=== PATIENT | male | born 1945 | race Caucasian/White ===

== ENCOUNTER 2023-11-14 07:49 | Inpatient (IN) ==
--- NOTE | 2023-11-03 13:35 | PAT Medication Instructions ---
Medication Instructions Date of Service November 03, 2023 Home Medications acyclovir 200 mg capsule 400 mg PO BID apixaban 5 mg tablet 2.5 mg PO BID calcium carbonate 500 mg PO BID cholecalciferol (vitamin D3) 50 mcg (2,000 unit) tablet (Vitamin D3) 50 mcg PO BID dexamethasone 4 mg tablet 4 mg PO DIRECTED famotidine 20 mg tablet (Pepcid) 20 mg PO DAILY PRN Acid Reflux hydrochlorothiazide 25 mg tablet 25 mg PO QAM lenalidomide 10 mg capsule (Revlimid) 10 mg PO DIRECTED lisinopril 20 mg tablet 20 mg PO QAM Continue as directed acyclovir 200 mg capsule 400 mg PO BID dexamethasone 4 mg tablet 4 mg PO DIRECTED ASK your prescriber and surgeon apixaban 5 mg tablet 2.5 mg PO BID lenalidomide 10 mg capsule (Revlimid) 10 mg PO DIRECTED DO NOT take the morning of surgery calcium carbonate 500 mg PO BID cholecalciferol (vitamin D3) 50 mcg (2,000 unit) tablet (Vitamin D3) 50 mcg PO BID hydrochlorothiazide 25 mg tablet 25 mg PO QAM lisinopril 20 mg tablet 20 mg PO QAM Take morning of surgery With a small sip of water, OTHERWISE NOTHING TO EAT OR DRINK AFTER MIDNIGHT: famotidine 20 mg tablet (Pepcid) 20 mg PO DAILY PRN Acid Reflux (if needed) Take evening before surgery calcium carbonate 500 mg PO BID cholecalciferol (vitamin D3) 50 mcg (2,000 unit) tablet (Vitamin D3) 50 mcg PO BID famotidine 20 mg tablet (Pepcid) 20 mg PO DAILY PRN Acid Reflux (if needed) Other Notes If you have any questions please call us at [phone] or [phone] or [phone] or [phone]
--- NOTE | 2023-11-08 08:57 | Anesthesiology Consultation ---
Date of Service November 08, 2023 Assessment & Plan (1) Encounter for pre-operative examination: - Infectious disease screening: Per assessment on 11/08/23: No known recent infectious disease contacts or current infectious disease symptoms. - Apixaban instructions per surgeon/prescriber - Positive antibodies: Received message from blood bank that patient's antibody screen is showing effects of previous Darzalex use (patient confirms he has not recently had this, blood bank indicates that the effects of use can remain in system for prolonged period). Jessica with blood bank states that patient will need to come in for another blood draw 11/11 (Monday) prior to 11/13 DOS for further send out labs ([place]) to ensure appropriate blood available perioperatively. Orders placed by blood bank (she states patient can come anytime on 11/11. desk sergeant aware). Spoke with patient via phone 11/08/23- he voiced understanding and indicates that he will come in 11/11 for blood-bank ordered labs. Chart Review Chart Review: Acceptable Risk for Surgery and Patient seen in Pre Admission Testing Teaching & Discussion Pre-Anesthesia Teaching/Discussion Notes: Instructed NPO after midnight before surgery,except medications with 15 cc of water. Medication instructions provided according to the PAT guidelines. History Surgery Operation Date: 11/14/23 07:45 Proposed Procedures p T12 Kyphoplasty - Anival Deshpande DO s T12 to L1 Decompression - Anival Deshpande DO Height/Weight Height: 5 ft 2.5 in Weight: 69.4 kg Allergies Allergy/AdvReac Type Severity Reaction Status Date / Time No Known Allergies Allergy Verified 11/03/23 12:42 Medications Home Medications Medication Instructions Recorded Confirmed Last Taken acyclovir 200 mg capsule 400 mg PO BID 11/03/23 11/03/23 Unknown apixaban 5 mg tablet 2.5 mg PO BID 11/03/23 11/03/23 Unknown calcium carbonate 500 mg PO BID 11/03/23 11/03/23 Unknown cholecalciferol (vitamin D3) 50 50 mcg PO BID 11/03/23 11/03/23 Unknown mcg (2,000 unit) tablet (Vitamin D3) dexamethasone 4 mg tablet 4 mg PO DIRECTED 11/03/23 11/03/23 Unknown famotidine 20 mg tablet (Pepcid) 20 mg PO DAILY PRN Acid Reflux 11/03/23 11/03/23 Unknown hydrochlorothiazide 25 mg tablet 25 mg PO QAM 11/03/23 11/03/23 Unknown lenalidomide 10 mg capsule 10 mg PO DIRECTED 11/03/23 11/03/23 Unknown (Revlimid) lisinopril 20 mg tablet 20 mg PO QAM 11/03/23 11/03/23 Unknown Past Medical History Medical History (Updated 11/08/23 @ 08:54 by Loreto Donnelly) Acid reflux Occasional History of COVID-19 01/2023 HTN (hypertension) Multiple myeloma Dx 07/2022 On anticoagulant therapy Pharmacy note indication: "VTE prophylaxis while on Revlimid" No personal hx of DVT/PE Osteoarthritis Poor historian Exercise / Class Metabolic Activity III < 4 Walking/Shop/Light housework Past Surgical History Surgical History (Updated 11/08/23 @ 09:47 by Loreto Donnelly) History of arthroscopy left knee History of hip surgery left History of surgery on lower extremity Left femur titanium danette History of tooth extraction Hx of hernia repair Past Anesthesia History No Hx of Anesthesia Complications and No Family Hx of Anesthesia Complications History of PONV No Hx of PONV and No Hx of Motion Sickness Social History Smoking Status: Former smoker Do You Dip or Chew Tobacco: No Smoking End Date: 10+ years ago Hx Alcohol Use: No Hx Substance Use: No substance use type: does not use Review of Systems Patient denies chest pain, shortness of breath, fever, chills, cough, wheezing, palpitations. Physical Exam Vital Signs BP 120/63 P 76 SP02 98%RA RESP 16 Physical Full cervical extension range of motion. Full TMJ range of motion. TMD 3 finger breaths Mallampati Score III Dentition: left upper "broken tooth" Lungs: clear throughout to auscultation Cardiac: regular rate and rhythm, no murmurs noted Spine: kyphosis Carotid arteries: negative bruit Extremities: no LE edema Lab Results Anesthesia Preop Results Results Anesthesia Widget: WBC 8.84 K/ul (4.8-10.8) 10/19/23 Hgb 12.4 g/dl (14.0-18.0) L 10/19/23 Hct 38.3 % (42.0-52.0) L 10/19/23 Plt 281 K/uL (130-400) 10/19/23 Na 141 mmol/L (136-145) 10/19/23 K 3.5 mmol/L (3.5-5.1) 10/19/23 Cl 102 mmol/L (98-107) 10/19/23 CO2 34 mmol/L (21-32) H 10/19/23 BUN 22 mg/dl (6-23) 10/19/23 Creat 1.10 mg/dl (0.6-1.4) 10/19/23 Glucose Level 110 mg/dl (70-99(Fasting)) H 10/19/23 PT 10.8 Seconds (9.0-12.0) 11/08/23 PTT 29 Seconds (21-31) 11/08/23 INR 1.0 (0.9-1.1) 11/08/23 HA1c 5.5 % (4.5-5.6) 11/08/23 Urine Color Yellow 11/08/23 Urine Appearance Clear (Clear) 11/08/23 Urine pH 6.5 (4.5-7.5) 11/08/23 Urine Specific [place] 1.010 (1.000-1.030) 11/08/23 Urine Protein Negative (Negative) 11/08/23 Urine Glucose (UA) Negative (Negative) 11/08/23 Urine Ketones Negative (Negative) 11/08/23 Urine Blood Negative (Negative) 11/08/23 Urine Nitrite Negative (Negative) 11/08/23 Urine Bilirubin Negative (Negative) 11/08/23 Urine Urobilinogen Negative (Negative) 11/08/23 Urine Leukocyte Esterase Negative (Negative) 11/08/23 Blood Type O Positive 11/08/23 Antibody Screen POSITIVE A 11/08/23 Testing Electrocardiogram Date: 11/08/23 SR with PACs at 75bpm. Prolonged QT. No significant change compared to 02/18/2009 per country printer apprentice comparison. Chest X-Ray Date: 11/08/23 FINDINGS: The lungs are clear. The heart is normal in size. There is a moderate hiatus hernia. No pleural effusions. No pneumothorax. A severe compression fracture at T12 is again noted. There is also a moderate compression fracture at T3. IMPRESSION: No acute cardiopulmonary process. T3 and T12 compression fractures.
[~2023-11-14 07:49] MED LIST: DEXAMETHASONE SOD INJ 4 MG/ML VIAL ONE; GLYCOPYRROLATE 0.2 MG/ML VIAL ONE; LIDOCAINE 2% 2 ML VIAL/AMP(20MG/ML) INFIL ONE; MIDAZOLAM HCL 1 MG/ML 2ML VIAL ONE; ONDANSETRON INJ 2 MG/ML 2 ML VIAL ONE; PROPOFOL IV EMULSION 10 MG/ML 20 ML VIAL IV ONE; ROCURONIUM BROMIDE 10 MG/ML 5 ML VIAL IV ONE; SUGAMMADEX SODIUM 200 MG/2 ML VIAL IV ONE; fentaNYL citrate PF 100 MCG/2 ML VIAL ONE
[2023-11-14] MEDS: ACETAMINOPHEN 500 MG TAB PO SCH (08:22)
[2023-11-14] MEDS: CeleBREX 200 MG CAP PO SCH (08:23)
[2023-11-14] MEDS: GABAPENTIN 300 MG CAP PO SCH ×2 (08:23→20:39)
[2023-11-14] MEDS: LR 60ML/HR IV SCH (08:23)
[2023-11-14] MEDS: LR 15ML/HR IV SCH (08:35)
[2023-11-14] MEDS ORDERED: ATROPINE SULFATE 0.1 MG/ML 10ML SYR IV PRN (09:03)
[2023-11-14] MEDS ORDERED: PROMETHAZINE HCL 6.25 MG in SODIUM CHLORIDE 0.9% 50 ML IV PRN (09:03)
--- NOTE | 2023-11-14 09:35 | History & Physical Bridge Note ---
Date of Service November 14, 2023 History & Physical Bridge Note I have examined the patient, reviewed the History & Physical and in the interval since the performance of the History & Physical I have noted the following changes of clinical significance: no changes noted
--- NOTE | 2023-11-14 09:36 | History & Physical Report ---
Date of Service November 14, 2023 Assessment & Plan (1) T12 compression fracture: Plan: T12 kyphoplasty, T12-L1 decompression History of Present Illness Chief Complaint: Chronic back pain Primary Care Provider: Nelson Bertrand Male who presents with chronic back pain consistent with a T12 compression fracture and stenosis. Subsequent is here for surgical invention. This is a 78-year-old Allergies Allergy/AdvReac Type Severity Reaction Status Date / Time No Known Allergies Allergy Verified 11/14/23 08:19 Home Medications Medication Instructions Recorded Confirmed Type acyclovir 200 mg capsule 400 mg PO BID 11/03/23 11/14/23 History apixaban 5 mg tablet 2.5 mg PO BID 11/03/23 11/14/23 History calcium carbonate 500 mg PO BID 11/03/23 11/14/23 History cholecalciferol (vitamin D3) 50 50 mcg PO BID 11/03/23 11/14/23 History mcg (2,000 unit) tablet (Vitamin D3) dexamethasone 4 mg tablet 4 mg PO DIRECTED 11/03/23 11/14/23 History famotidine 20 mg tablet (Pepcid) 20 mg PO DAILY PRN Acid Reflux 11/03/23 11/14/23 History hydrochlorothiazide 25 mg tablet 25 mg PO QAM 11/03/23 11/14/23 History lenalidomide 10 mg capsule 10 mg PO DIRECTED 11/03/23 11/14/23 History (Revlimid) lisinopril 20 mg tablet 20 mg PO QAM 11/03/23 11/14/23 History Past Med/Surg History Problem List (Updated 11/14/23 @ 09:36 by Anival Deshpande DO) T12 compression fracture Encounter for pre-operative examination Medical History (Updated 11/14/23 @ 09:36 by Anival Deshpande DO) Poor historian Acid reflux Occasional Osteoarthritis On anticoagulant therapy Pharmacy note indication: "VTE prophylaxis while on Revlimid" No personal hx of DVT/PE History of COVID-19 01/2023 HTN (hypertension) Multiple myeloma Dx 07/2022 Surgical History History of surgery on lower extremity Left femur titanium danette Hx of hernia repair History of arthroscopy left knee History of tooth extraction History of hip surgery left Social History Smoking Status: Former smoker Smoking End Date: 10+ years ago; Second Hand Exposure: No; Do You Dip or Chew Tobacco: No; Tobacco Cessation Education Requested by Patient: No Hx Alcohol Use: No Hx Substance Use: No Preferred Language: Nigerien Communication Ability: Effective Yarder Boss Required: No Beliefs That Will Affect Care: None Current Living Situation: Alone Other Information That Helps Us Care for You: No Feels Safe at Home: Yes Safety Concerns: Feels Safe At This Time Assistive Devices: Cane, Glasses and Hearing Aid - Bilateral Physical Exam Physical Exam: Patient is alert and oriented Heart regular rhythm lungs clear Results & Data Results & Data Vital Signs (Past 12 Hours) Vital Signs Pulse Resp BP Pulse Ox O2 Del Method 11/14/23 08:15 79 20 136/75 99 Room Air
[2023-11-14] MEDS: ceFAZolin 2000MG 2,000 MG/15 ML SYR IV SCH (09:59)
[2023-11-14] MEDS: BUPIVACAINE/EPINEPHRINE 0.25% 1:200,000 30 ML VIAL ONE ×2 (10:26→15:48)
[2023-11-14] MEDS: FLOSEAL HEMOSTATIC MATRIX 10ML TOP ONE (10:55)
[2023-11-14] MEDS: ceFAZolin 330 MG/ML 1 GM VIAL ONE ×2 (11:05→15:49)
--- NOTE | 2023-11-14 11:15 | Operative Report ---
Post Operative Report Pre & Post Diagnosis Operation Date: 11/14/23 09:35 Pre-Op diagnosis: T12 compression fracture with severe spinal stenosis Postop diagnosis: Same I identified the patient and participated in the time-out.: Yes Procedure Operation Date: 11/14/23 09:35 #1 decompression with bilateral medial facetectomies T12-L1. #2 in situ fusion T12-L1. #3 placement infuse collagen sponge bath Koros the posterior lateral gutters T12-L1. Surgeon Anival Deshpande, Stave Block Splitter Kim Benedict Estimated Blood Loss 50 Findings Consistent with Post-Op Diagnosis Specimens None Indications This is a 78-year-old male presents problems diagnosis after having course of nonoperative care is here for surgical invention. Description of Procedure Patient was met with identified informed consent obtained. Patient was then taken to the operative suite underwent patient placed in prone position on the Shaheed table on top of the Mahesh frame. All bony promises well-padded eyes inspected to ensure no external pressure placed upon them. This point the thoracolumbar spine was prepped and draped in a sterile fashion. Sharp disse ction with assisted Bovie cautery form down to and exposing the lamina transverse processes of T12 and L1. Informed complete laminectomy of L1 including bilateral medial facetectomies at with partial laminectomy T12 with bilateral medial facetectomies to adequately decompress the canal. I then attempted to place Kyphon working cannulas by way of a transpedicular approach into the T12 vertebral body. Despite several attempts it was unsuccessful to safely navigate what was left of the collapsed bone. Subsequently I aborted the kyphoplasty portion of the procedure. I then moved forward to place bone graft in the posterior gutters at T12-L1 using infuse collagen sponge and Koros. The transverse processes of T12 and L1 were burred to subcortical big bone prior to placement. 10 round MIRTHA drain was then inserted and incision closed with 1 Vicryl to fascia 2-0 Vicryl subcutaneously and 4 Monocryl for final skin closure. Please note Kim Benedict was present at the entire procedure on the patient positioning complex course of the surgery and possible closure. I attest to the content of the Intraoperative Record and any orders documented therein. Any exceptions are noted below.
[2023-11-14] MEDS: HYDROmorphone INJ 1 MG/ML SYRINGE IV PRN ×2 (11:30→19:33)
[2023-11-14] MEDS: IOPAMIDOL INJ 61% 15 ML VIAL INSTIL ONE (11:31)
--- NOTE | 2023-11-14 11:52 | Fluoroscopy Report ---
FL spine 1V any level CLINICAL HISTORY: KYPHO T12- ATTEMPTED TECHNIQUE: 1 views were obtained with the C-arm in the OR with the above procedure. Total fluoroscopy time was 17.5 seconds. Radiation dose was 5.93 mGy. Comparison: Comparison is made to MRI lumbar spine 10/17/2023 FINDINGS/IMPRESSION: Intraoperative images were obtained of attempted kyphoplasty and decompression a t T12. Please correlate with intraoperative fluoroscopy and operative report. ACT 112: Negative or not required by law. Electronically signed by: Monroe Wolf M.D. 11/14/2023 11:51 AM
[2023-11-14] MEDS: HYDROmorphone INJ 0.5 MG/0.5 ML SYR IV PRN (12:10)
--- NOTE | 2023-11-14 12:11 | History & Physical Bridge Note ---
Date of Service November 14, 2023 History & Physical Bridge Note I have examined the patient, reviewed the History & Physical and in the interval since the performance of the History & Physical I have noted the following changes of clinical significance: no changes noted Patient awoke with significant groin pain and testicular pain. His drain is seem to be functioning. I am concerned that he has developed neural compression from hematoma on recommending reexploration evacuation of hematoma of the thoracic spine this was possible.
[2023-11-14] MEDS: DEXAMETHASONE SOD INJ 4 MG/ML VIAL ONE (12:16)
[2023-11-14] MEDS: dexAMETHasone 10 MG in SYRINGE 0 ML IV STA (12:21)
[2023-11-14] MEDS ORDERED: PROPOFOL IV EMULSION 10 MG/ML 20 ML VIAL IV ONE (12:50)
[2023-11-14] MEDS ORDERED: LIDOCAINE 2% 2 ML VIAL/AMP(20MG/ML) INFIL ONE (12:50)
[2023-11-14] MEDS ORDERED: ROCURONIUM BROMIDE 10 MG/ML 5 ML VIAL IV ONE (12:50)
--- NOTE | 2023-11-14 12:50 | Anesthesiology Progress Note ---
Date of Service November 14, 2023 Anesthesia Post Procedure Vital Signs Vital Signs: Temp Pulse Pulse Resp BP Pulse Ox O2 Del Method 11/14/23 12:40 68 18 116/63 99 Nasal Cannula 11/14/23 12:30 71 22 137/71 100 Nasal Cannula 11/14/23 12:20 72 20 136/70 100 Nasal Cannula 11/14/23 12:10 73 18 140/91 100 Nasal Cannula 11/14/23 12:00 72 20 130/78 100 Nasal Cannula 11/14/23 11:50 79 15 127/79 100 Nasal Cannula 11/14/23 11:40 74 17 134/75 100 Nasal Cannula 11/14/23 11:30 70 12 147/73 H 100 Nasal Cannula 11/14/23 11:26 36.0 C L 75 10 L 151/72 H 98 Oxymask 11/14/23 08:15 79 20 136/75 99 Room Air O2 Flow Rate 11/14/23 12:40 2 11/14/23 12:30 2 11/14/23 12:20 2 11/14/23 12:10 2 11/14/23 12:00 2 11/14/23 11:50 2 11/14/23 11:40 2 11/14/23 11:30 2 11/14/23 11:26 6 11/14/23 08:15 Pain Intensity Groin: Pain Intensity: 10 Transfer of Care Handoff Completed per policy Notes Mental Status: alert / awake / arousable Patient Amnestic to Procedure: Yes Nausea / Vomiting: adequately controlled Pain: adequately controlled Airway Patency, RR, SpO2: stable & adequate BP & HR: stable & adequate Hydration State: stable & adequate Anesthetic Complications: no major complications apparent
[2023-11-14] MEDS ORDERED: fentaNYL citrate PF 100 MCG/2 ML VIAL ONE (12:51)
--- NOTE | 2023-11-14 13:20 | Communication Note ---
Date of Service: November 14, 2023 Patient returning to OR from PACU for evacuation hematoma. No further medical changes from preop, remains npo. Will plan to proceed under general anesthesia.
[2023-11-14] MEDS: ceFAZolin 2000MG 2,000 MG/15 ML SYR IV ONE (14:51)
[2023-11-14] MEDS ORDERED: ceFAZolin 330 MG/ML 1 GM VIAL ONE (15:03)
[2023-11-14] MEDS ORDERED: PHENYLEPHRINE 100MCG/ML 10ML SYR IV ONE (15:03)
--- NOTE | 2023-11-14 15:11 | Operative Report ---
Post Operative Report Pre & Post Diagnosis Operation Date: 11/14/23 09:40 Pre-Op diagnosis: Postop hematoma Postop diagnosis: Hematoma with evidence of bony fragments. I identified the patient and participated in the time-out.: Yes Procedure Operation Date: 11/14/23 09:40 Evacuation of hematoma and revision decompression T8 12 L1. Surgeon Anival Deshpande DO Bushing Press Operator Kim Benedict Estimated Blood Loss 15 Findings Consistent with Post-Op Diagnosis Specimens None Indications This is a 78-year-old male status post decompression fusion T12-L1 1. Postoperatively he had significant onset of perineal pain. Subsequently he was taken back to the OR to rule out neural compression. Description of Procedure Patient was taken the operative suite underwent patient placed prone position on the Shaheed table top Mahesh frame. All bony promises well-padded eyes inspected to ensure no external precipice spine. This point the the tho racolumbar spine was prepped and draped in a sterile fashion. Utilizing the previous incision site opened up the left spine to the epidural space. Hematoma was evacuated. I then explored the lateral recesses noting evidence of fragments of bone along the left lateral recess eroding into the dura and notable for CSF leak. All fragments were subsequently removed the CSF leak was far lateral and unable to be repaired directly. I did place a patch of DuraGen directly over the durotomy site followed by DuraSeal. 10 round MIRTHA drain was then inserted. Incision was closed with 1 Vicryl fascia 2-0 Vicryl subcutaneously and 4 Monocryl for fascial closure. Steri-Strips dressings placed. Patient waken taken to PACU stable condition. Please note Kim Benedict was present at the entire procedure and all the patient positioning complex portions of the surgery and final skin closure. I attest to the content of the Intraoperative Record and any orders documented therein. Any exceptions are noted below.
--- NOTE | 2023-11-14 16:42 | Anesthesiology Progress Note ---
Date of Service November 14, 2023 Anesthesia Post Procedure Vital Signs Vital Signs: Temp Pulse Pulse Resp BP Pulse Ox O2 Del Method 11/14/23 16:40 75 15 108/48 L 95 Nasal Cannula 11/14/23 16:30 36.4 C L 77 20 100/55 L 95 Nasal Cannula 11/14/23 16:20 75 14 99/53 L 96 Nasal Cannula 11/14/23 16:10 74 16 94/54 L 95 Nasal Cannula 11/14/23 16:00 71 16 104/51 L 94 Nasal Cannula 11/14/23 15:50 70 13 115/55 L 96 Nasal Cannula 11/14/23 15:40 69 12 110/61 98 Nasal Cannula 11/14/23 15:37 36.0 C L 74 10 L 119/60 98 Oxymask 11/14/23 14:10 80 12 115/58 L 94 Nasal Cannula 11/14/23 14:00 78 12 120/62 95 Nasal Cannula 11/14/23 13:50 77 14 126/64 95 Nasal Cannula 11/14/23 13:40 71 13 124/64 97 Nasal Cannula 11/14/23 13:30 71 18 119/61 97 Nasal Cannula 11/14/23 13:20 70 18 127/59 L 100 Nasal Cannula 11/14/23 13:10 71 15 123/64 100 Nasal Cannula 11/14/23 13:00 72 12 124/49 L 99 Nasal Cannula 11/14/23 12:50 70 17 107/53 L 99 Nasal Cannula 11/14/23 12:40 68 18 116/63 99 Nasal Cannula 11/14/23 12:30 71 22 137/71 100 Nasal Cannula 11/14/23 12:20 72 20 136/70 100 Nasal Cannula 11/14/23 12:10 73 18 140/91 100 Nasal Cannula 11/14/23 12:00 72 20 130/78 100 Nasal Cannula 11/14/23 11:50 79 15 127/79 100 Nasal Cannula 11/14/23 11:40 74 17 134/75 100 Nasal Cannula 11/14/23 11:30 70 12 147/73 H 100 Nasal Cannula 11/14/23 11:26 36.0 C L 75 10 L 151/72 H 98 Oxymask 11/14/23 08:15 79 20 136/75 99 Room Air O2 Flow Rate 11/14/23 16:40 2 11/14/23 16:30 2 11/14/23 16:20 2 11/14/23 16:10 2 11/14/23 16:00 2 11/14/23 15:50 2 11/14/23 15:40 2 11/14/23 15:37 6 11/14/23 14:10 2 11/14/23 14:00 2 11/14/23 13:50 2 11/14/23 13:40 2 11/14/23 13:30 2 11/14/23 13:20 2 11/14/23 13:10 2 11/14/23 13:00 2 11/14/23 12:50 2 11/14/23 12:40 2 11/14/23 12:30 2 11/14/23 12:20 2 11/14/23 12:10 2 11/14/23 12:00 2 11/14/23 11:50 2 11/14/23 11:40 2 11/14/23 11:30 2 11/14/23 11:26 6 11/14/23 08:15 Pain Intensity Groin: Pain Intensity: 10 Transfer of Care Handoff Completed per policy Notes Mental Status: alert / awake / arousable Patient Amnestic to Procedure: Yes Nausea / Vomiting: adequately controlled Pain: adequately controlled Airway Patency, RR, SpO2: stable & adequate BP & HR: stable & adequate Hydration State: stable & adequate Anesthetic Complications: no major complications apparent
[2023-11-14] MEDS ORDERED: METOCLOPRAMIDE HCL INJ 5 MG/ML 2 ML VIAL IV PRN (17:15)
[2023-11-14] MEDS ORDERED: SOD PHOSPHATE/SOD BIPHOSPHATE ENEMA 132 ML BTL PR PRN (17:15)
[2023-11-14] MEDS ORDERED: DO NOT ADMINISTER FLU VACCINE PRN (17:15)
[2023-11-14] MEDS ORDERED: NALOXONE HCL 0.4 MG/1 ML VIAL/CARP IV PRN (17:15)
[2023-11-14] MEDS ORDERED: LORazepam 0.5 MG in SYRINGE 0.25 ML IV PRN (17:15)
[2023-11-14] MEDS ORDERED: DO NOT ADMINISTER PNEUMOCOCCAL VACCINE PRN (17:15)
[2023-11-14] MEDS ORDERED: ALUMINUM/MAGNESIUM SUSP 30 ML UDC PO PRN (17:15)
[2023-11-14] MEDS ORDERED: ONDANSETRON 4 MG OD TAB PO PRN (17:15)
[2023-11-14] MEDS ORDERED: HYDROmorphone INJ 0.5 MG/0.5 ML SYR IV PRN (17:15)
[2023-11-14] MEDS ORDERED: PROMETHAZINE 12.5 MG/50.5 ML BAG IV PRN (17:15)
[2023-11-14] MEDS ORDERED: hydrOXYzine HCl 25 MG TAB PO PRN (17:15)
[2023-11-14] MEDS ORDERED: FAMOTIDINE 20 MG TAB PO PRN ×2 (17:15)
[2023-11-14] MEDS ORDERED: ONDANSETRON INJ 2 MG/ML 2 ML VIAL IV PRN (17:15)
[2023-11-14] MEDS ORDERED: diphenhydrAMINE Capsule 25 MG CAP PO PRN (17:15)
[2023-11-14] MEDS: SODIUM CHLORIDE 0.9% 1,000 ML IV SCH (17:48)
[2023-11-14] MEDS: oxyCODONE HCL IR 5 MG TAB (IMMEDIATE RELEASE) PO PRN (18:18)
[2023-11-14] MEDS: ceFAZolin 1000MG 1,000 MG/7.5 ML SYR IV SCH (18:19)
--- NOTE | 2023-11-14 19:12 | Consultation ---
Date of Consultation November 14, 2023 Assessment & Plan (1) T12 compression fracture: (2) Pathologic fracture: (3) Spinal stenosis, thoracolumbar region: (4) Multiple myeloma: (5) HTN (hypertension): Plan This is a 78-year-old male who has significant past medical history of multiple myeloma currently on Revlimid therapy [facility], HTN, GERD who presented for elective kyphoplasty and lumbar decompression surgery by Dr. Deshpande. T12 pathologic burst fracture in setting of multiple myeloma with severe central canal stenosis status post T12 kyphoplasty and T12-L1 decompression, POD #[address] Deshpande initial procedure complicated by perineal/groin pain resulting in return to OR and evacuation of hematoma and repair of CSF leak with dural patch reported EBL 50 mL preop hemoglobin 12.4, monitor hemoglobin closely pain/management orthopedics activity, therapy and incentive spirometry as directed by orthopedics patient currently on apixaban for VTE prophylaxis in setting of Revlimid therapy, will defer resumption of this medication at the discretion of orthopedic surgeon HTN: chronic, stable, hold lisinopril and HCTZ postoperatively, reevaluate blood pressure in a.m. and resume as able Multiple myeloma: Currently undergoing Revlimid therapy, 21-day cycle/7 days off, patient brought in his own supply; follows cancer care [facility], on apixaban for VTE prophylaxis DVT prophylaxis: SCDs Dispo: Per primary PCP: Nelson Bertrand at the [place] FULL CODE Thank you for this consultation. We will follow the patient with you during their hospital stay. You can reach a member of the [facility] Hospitalist Team 17/10 via hospitalist role on tiger text. A total of 50 minutes was spent coordinating, documenting, and providing care for this patient excluding time spent in the performance of separately billed services. This included personally viewing all current laboratories and imaging studies, medication reconciliation, outpatient chart review, and discussion with specialists. Pt was seen and examined in collaboration with Dr. Tripathi, please see addendum History of Present Illness Requesting Physician: Dr. Deshpande Reason for Consultation: Post op medical management Attending Physician: Anival Deshpande, DO History of Present Illness This is a 78-year-old male who has significant past medical history of multiple myeloma currently on Revlimid therapy following [facility], HTN, GERD who presented for elective kyphoplasty and lumbar decompression surgery by Dr. Deshpande. He currently is undergoing treatment for multiple myeloma and follows with Dr. Coelho of [facility]. He has been dealing with a significant amount of lower back pain with radiation to his hips. He underwent an MRI of his back which revealed a T12 burst fracture with 6 mm retropulsion likely pathologic in setting of history of multiple myeloma as well as severe central canal stenosis at the T12 level secondary To the retropulsion. He therefore was referred to Dr. Deshpande. He underwent the first procedure this morning and in PACU he developed significant groin pain. He was taken back to the OR to rule out neural compression. His exploratory procedure revealed hematoma in the epidural space as well as fragments of bone in the lateral recess and CSF leak. CSF leak was repaired with a dural seal patch. A 10 round MIRTHA drain was then inserted and he was taken back to PACU in stable condition. Postoperatively he continues to complain of numbness in his groin area but otherwise feels well. His son and [id number] are at bedside. He currently denies any fever, chills, sweats, lightheadedness, dizziness, chest pain, shortness of breath, nausea, vomiting or abdominal pain. He tolerated his clear liquid diet. Of note he is on a apixaban therapy and he last took this on Thursday 11/09. He is on this for VT prophylaxis while on Revlimid therapy. Allergies Allergy/AdvReac Type Severity Reaction Status Date / Time No Known Allergies Allergy Verified 11/14/23 08:19 Home Medications Medication Instructions Recorded Confirmed Type acyclovir 200 mg capsule 400 mg PO BID 11/03/23 11/14/23 History apixaban 5 mg tablet 2.5 mg PO BID 11/03/23 11/14/23 History calcium carbonate 500 mg PO BID 11/03/23 11/14/23 History cholecalciferol (vitamin D3) 50 50 mcg PO BID 11/03/23 11/14/23 History mcg (2,000 unit) tablet (Vitamin D3) dexamethasone 4 mg tablet 4 mg PO DIRECTED 11/03/23 11/14/23 History famotidine 20 mg tablet (Pepcid) 20 mg PO DAILY PRN Acid Reflux 11/03/23 11/14/23 History hydrochlorothiazide 25 mg tablet 25 mg PO QAM 11/03/23 11/14/23 History lenalidomide 10 mg capsule 10 mg PO DIRECTED 11/03/23 11/14/23 History (Revlimid) lisinopril 20 mg tablet 20 mg PO QAM 11/03/23 11/14/23 History Patient History Medical History Poor historian Acid reflux Occasional Osteoarthritis On anticoagulant therapy Pharmacy note indication: "VTE prophylaxis while on Revlimid" No personal hx of DVT/PE History of COVID-19 01/2023 HTN (hypertension) Multiple myeloma Dx 07/2022 Surgical History History of surgery on lower extremity Left femur titanium danette Hx of hernia repair History of arthroscopy left knee History of tooth extraction History of hip surgery left Social History Smoking Status: Former smoker Smoking End Date: 10+ years ago; Second Hand Exposure: No; Do You Dip or Chew Tobacco: No; Tobacco Cessation Education Requested by Patient: No Hx Alcohol Use: No Hx Substance Use: No Preferred Language: Kyrgyz Communication Ability: Effective Tea Room Manager Required: No Beliefs That Will Affect Care: None Current Living Situation: Alone Other Information That Helps Us Care for You: No Feels Safe at Home: Yes Safety Concerns: Feels Safe At This Time Assistive Devices: Cane, Glasses and Hearing Aid - Bilateral Review of Systems Review of Systems: All systems reviewed & are unremarkable except as noted in HPI & below Physical Exam Physical Exam: Constitutional: WD/WN, elderly, M, sitting up in bed, pale, vitals as above, NAD, sitting up in bed, pleasant, conversing easily Head: Normocephalic, Atraumatic Eyes: PERRL, conjunctivae normal, anicteric sclerae ENMT: external ear and nose normal, oropharynx normal Neck: trachea midline, no thyromegaly normal visual inspection Respiratory: normal respiratory effort, on O2 via 2L, lungs clear to auscultation, no wheeze, rales, rhonchi. Normal insp/exp effort, no accessory muscle use Cardiovascular: RRR, no murmur, no edema Vessels: no JVD or carotid bruit Chest: normal inspection of chest Abdomen: normal bowel sounds, soft, nontender, no hepatosplenomegaly Musculoskeletal: no cyanosis or clubbing, AROM x 4 Skin: no rashes, warm and dry normal turgor , lumbar dressing CDI with serosang drainage Neurologic: no face palsy, no dysarthria CN's II-XI intact bilaterally and moves all extremities Psychiatric: A+Ox3, euthymic affect Lymphatic: no cervical or axillary lymphadenopathy : somers cath with yellow urine Results & Data Vital Signs (Past 12 Hours) Vital Signs Temp Pulse Pulse Pulse Resp BP Pulse Ox 11/14/23 18:10 36.5 C 76 17 119/68 99 11/14/23 17:32 36.5 C 74 17 117/70 96 11/14/23 17:20 11/14/23 17:00 36.5 C 74 16 105/59 L 96 11/14/23 16:40 75 15 108/48 L 95 11/14/23 16:30 36.4 C L 77 20 100/55 L 95 11/14/23 16:20 75 14 99/53 L 96 11/14/23 16:10 74 16 94/54 L 95 11/14/23 16:00 71 16 104/51 L 94 11/14/23 15:50 70 13 115/55 L 96 11/14/23 15:40 69 12 110/61 98 11/14/23 15:37 36.0 C L 74 10 L 119/60 98 11/14/23 14:10 80 12 115/58 L 94 11/14/23 14:00 78 12 120/62 95 11/14/23 13:50 77 14 126/64 95 11/14/23 13:40 71 13 124/64 97 11/14/23 13:30 71 18 119/61 97 11/14/23 13:20 70 18 127/59 L 100 11/14/23 13:10 71 15 123/64 100 11/14/23 13:00 72 12 124/49 L 99 11/14/23 12:50 70 17 107/53 L 99 11/14/23 12:40 68 18 116/63 99 11/14/23 12:30 71 22 137/71 100 11/14/23 12:20 72 20 136/70 100 11/14/23 12:10 73 18 140/91 100 11/14/23 12:00 72 20 130/78 100 11/14/23 11:50 79 15 127/79 100 11/14/23 11:40 74 17 134/75 100 11/14/23 11:30 70 12 147/73 H 100 11/14/23 11:26 36.0 C L 75 10 L 151/72 H 98 11/14/23 08:15 79 20 136/75 99 O2 Del Method O2 Flow Rate 11/14/23 18:10 Nasal Cannula 11/14/23 17:32 Nasal Cannula 2 11/14/23 17:20 Nasal Cannula 2 11/14/23 17:00 Nasal Cannula 2 11/14/23 16:40 Nasal Cannula 2 11/14/23 16:30 Nasal Cannula 2 11/14/23 16:20 Nasal Cannula 2 11/14/23 16:10 Nasal Cannula 2 11/14/23 16:00 Nasal Cannula 2 11/14/23 15:50 Nasal Cannula 2 11/14/23 15:40 Nasal Cannula 2 11/14/23 15:37 Oxymask 6 11/14/23 14:10 Nasal Cannula 2 11/14/23 14:00 Nasal Cannula 2 11/14/23 13:50 Nasal Cannula 2 11/14/23 13:40 Nasal Cannula 2 11/14/23 13:30 Nasal Cannula 2 11/14/23 13:20 Nasal Cannula 2 11/14/23 13:10 Nasal Cannula 2 11/14/23 13:00 Nasal Cannula 2 11/14/23 12:50 Nasal Cannula 2 11/14/23 12:40 Nasal Cannula 2 11/14/23 12:30 Nasal Cannula 2 11/14/23 12:20 Nasal Cannula 2 11/14/23 12:10 Nasal Cannula 2 11/14/23 12:00 Nasal Cannula 2 11/14/23 11:50 Nasal Cannula 2 11/14/23 11:40 Nasal Cannula 2 11/14/23 11:30 Nasal Cannula 2 11/14/23 11:26 Oxymask 6 11/14/23 08:15 Room Air Laboratory Results preoperative lab work reviewed from 10/19/2023 including a CBC, BMP, A1c, lipid panel, urinalysis Diagnostic Findings Spine X-Ray 11/14/23 09:35 FL spine 1V any level CLINICAL HISTORY: KYPHO T12- ATTEMPTED TECHNIQUE: 1 views were obtained with the C-arm in the OR with the above procedure. Total fluoroscopy time was 17.5 seconds. Radiation dose was 5.93 mGy. Comparison: Comparison is made to MRI lumbar spine 10/17/2023 FINDINGS/IMPRESSION: Intraoperative images were obtained of attempted kyphoplasty and decompression at T12. Please correlate with intraoperative fluoroscopy and operative report. ACT 112: Negative or not required by law. Electronically signed by: Monroe Wolf M.D. 11/14/2023 11:51 AM preoperative chest x-ray reviewed from 10/17/2023 which negative for any acute cardiopulmonary abnormality. Medications Administered Current Inpatient Medications Acetaminophen (Acetaminophen 500 Mg Tab) 1,000 mg PO Q8H PRN PRN Reason: MILD Pain Scale 1,2,3 & Pre PT Stop: 12/14/23 17:14 Al Hydrox/Mg Hydrox/Simethicone (Aluminum/Magnesium Susp 30 Ml Udc) 30 ml PO Q6H PRN PRN Reason: Dyspepsia Stop: 12/14/23 17:14 Bisacodyl (Bisacodyl 10 Mg Supp) 10 mg FL DAILY PRN PRN Reason: Constipation Stop: 12/14/23 17:14 Calcium Carbonate (Calcium Carbonate 1250mg Tab) 1 tab PO BID BR[facility]ON Stop: 12/14/23 20:59 Dexamethasone (Dexamethasone 4 Mg Tab) 20 mg PO Th@0900 [facility]; Protocol Stop: 12/16/23 08:59 Diphenhydramine HCl (Diphenhydramine Capsule 25 Mg Cap) 25 mg PO Q6H PRN PRN Reason: Allergic Rhinitis/Insomnia Stop: 12/14/23 17:14 Famotidine (Famotidine 20 Mg Tab) 20 mg PO Q12H PRN PRN Reason: Dyspepsia Stop: 12/14/23 17:14 Gabapentin (Gabapentin 300 Mg Cap) 300 mg PO TID [facility] Stop: 12/14/23 20:59 Hydrochlorothiazide (Hydrochlorothiazide 25 Mg Tab) 25 mg PO QAM [facility] Stop: 12/15/23 08:59 Hydromorphone HCl (Hydromorphone Inj 0.5 Mg/0.5 Ml Syr) 0.25 mg IV Q5M PRN PRN Reason: Pain Stop: 11/28/23 12:14 Last Admin: 11/14/23 12:41 Dose: 0.25 mg Hydromorphone HCl (Hydromorphone Inj 0.5 Mg/0.5 Ml Syr) 0.5 mg IV Q3H PRN PRN Reason: MODERATE Pain (Scale 4,5,6) & Pre PT Stop: 11/28/23 17:14 Hydromorphone HCl (Hydromorphone Inj 1 Mg/Ml Syringe) 1 mg IV Q3H PRN PRN Reason: SEVERE Pain (Scale 7,8,9,10) Stop: 11/28/23 17:14 Hydroxyzine HCl (Hydroxyzine Hcl 25 Mg Tab) 25 mg PO Q8H PRN PRN Reason: Anxiety Stop: 12/14/23 17:14 Lactated Ringer's (Lr) 1,000 mls @ 15 mls/hr IV .Q24H [facility] Stop: 11/15/23 05:59 Last Infusion: 11/14/23 09:58 Dose: Infused Lactated Ringer's (Lr) 1,000 mls @ 60 mls/hr IV .[id number] [facility]ON Stop: 11/14/23 22:39 Last Admin: 11/14/23 08:23 Dose: Not Given Sodium Chloride (Nss) 1,000 mls @ 100 mls/hr IV .Q10H [facility] Stop: 12/14/23 17:14 Last Admin: 11/14/23 17:48 Dose: 100 mls/hr Acetaminophen (Ofirmev) 1,000 mg in 100 mls @ 400 mls/hr IV Q8H PRN PRN Reason: Pain Rating 1-3 & Pre PT Stop: 11/15/23 17:15 Cefazolin Sodium (Ancef 1000mg) 1,000 mg in 7.5 mls @ 2.5 mls/min IV Q8H [facility]; Protocol Stop: 11/15/23 01:32 Last Admin: 11/14/23 18:19 Dose: 2.5 mls/min Lorazepam 0.5 mg/ Syringe 0.5 mls @ 2 mls/min IV Q8H PRN; Protocol PRN Reason: Sedation/Anxiety Stop: 12/14/23 17:14 Promethazine HCl (Phenergan) 12.5 mg in 50.5 mls @ 202 mls/hr IV Q6H PRN PRN Reason: Nausea And Vomiting Stop: 12/14/23 17:14 Influenza Virus Vaccine Quadrival (Do Not Administer Flu Vaccine) 1 each N/A PRN PRN PRN Reason: Notification Stop: 12/14/23 17:14 Lisinopril (Lisinopril 20 Mg Tab) 20 mg PO QAM [facility] Stop: 12/15/23 08:59 Lorazepam (Lorazepam 0.5 Mg Tab) 0.5 mg PO Q8H PRN PRN Reason: Sedation/Anxiety Stop: 12/14/23 17:14 Magnesium Hydroxide (Magnesium Hydroxide Susp 30 Ml Udc) 30 ml PO Q24H PRN PRN Reason: Constipation Stop: 12/14/23 17:14 Metoclopramide HCl (Metoclopramide Hcl Inj 5 Mg/Ml 2 Ml Vial) 10 mg IV Q6H PRN PRN Reason: Nausea &/or Vomiting Stop: 12/14/23 17:14 Miscellaneous (Lenalidomide Do Not Tube) 1 each N/A QS [facility] Stop: 12/15/23 00:00 Naloxone HCl (Naloxone Hcl 0.4 Mg/1 Ml Vial/Carp) 0.1 mg IV Q5M PRN PRN Reason: Oversedation/Resp depression Stop: 12/14/23 17:14 Ondansetron HCl (Ondansetron Inj 2 Mg/Ml 2 Ml Vial) 4 mg IV Q6H PRN PRN Reason: Nausea &/or Vomiting Stop: 12/14/23 17:14 Ondansetron HCl (Ondansetron 4 Mg Od Tab) 4 mg PO Q6H PRN PRN Reason: Nausea Stop: 12/14/23 17:14 Oxycodone HCl (Oxycodone Hcl Ir 5 Mg Tab (Immediate Release)) 5 - 10 mg PO Q4H PRN PRN Reason: Pain & Pre PT Stop: 11/28/23 17:14 Last Admin: 11/14/23 18:18 Dose: 10 mg Pneumococcal Polyvalent Vaccine (Do Not Administer Pneumococcal Vaccine) 1 each N/A PRN PRN PRN Reason: Notification Stop: 12/14/23 17:14 Polyethylene Glycol (Polyethylene (Miralax) 17 Gm Pack) 17 gm PO Q6 [facility] Stop: 12/15/23 05:59 Senna/Docusate Sodium (Docusate Sodium/Senna 50/8.6mg Tab) 2 tab PO HS [facility] Stop: 12/14/23 20:59 Sodium Biphosphate/Sodium Phosphate (Sod Phosphate/Sod Biphosphate Enema 132 Ml Btl) 132 ml FL ONE PRN PRN Reason: Constipation Stop: 12/14/23 17:14 Tramadol HCl (Tramadol Hcl 50 Mg Tablet) 50 - 100 mg PO Q4H PRN PRN Reason: Moderate-Severe pain & Pre PT Stop: 12/14/23 17:14 Vitamin D (Cholecalciferol 25 Mcg (1000 Units) Tab) 50 mcg PO BID [facility] Stop: 12/14/23 20:59 ECG Additional Comments: I have independently reviewed and interpreted patient's admitting EKG which revealed: Sinus rhythm with PAC, QTc 482 MS, ventricular rate 75 bpm
[2023-11-14] MEDS: CALCIUM CARBONATE 1250MG TAB PO SCH (20:39)
[2023-11-14] MEDS: DOCUSATE SODIUM/SENNA 50/8.6MG TAB PO SCH (20:39)
[2023-11-14] MEDS: ACYCLOVIR 200 MG CAP PO SCH (20:39)
[2023-11-14] MEDS: LORazepam 0.5 MG TAB PO PRN (20:39)
[2023-11-14] MEDS: CHOLECALCIFEROL 25 MCG (1000 UNITS) TAB PO SCH (20:39)
[2023-11-14] MEDS: LENALIDOMIDE PO SCH (20:40)
[2023-11-14] MEDS: traMADol HCL 50 MG TABLET PO PRN (21:06)
[2023-11-14] MEDS: HYDROmorphone INJ 0.5 MG/0.5 ML SYR IV STA (21:54)
[2023-11-14] MEDS: ACETAMINOPHEN 1,000 MG/100 ML VIAL IV PRN (23:30)
[2023-11-15] MEDS ORDERED: [UNRECOGNIZED DRUG - REMARK] SCH
[2023-11-15] MEDS: POLYETHYLENE (MIRALAX) 17 GM PACK PO SCH (05:31)
[2023-11-15 05:49] LABS: Basophils # (auto) 0.02 K/uL (0.00-0.20); Basophils % (auto) 0.1 %; Hematocrit (blood only) 32.3 % (42.0-52.0); Hemoglobin 10.4 g/dl (14.0-18.0); Immature Granulocytes # (auto) 0.08 K/uL (0.01-0.20); Immature Granulocytes % (auto) 0.6 %; Lymphocytes # (auto) 1.13 K/uL (1.20-3.40); Mean Corpuscular Hemoglobin 29.9 pg (25.0-34.0); Mean Corpuscular Hgb Conc 32.2 g/dL (32.0-36.0); Mean Corpuscular Volume 92.8 fL (80.0-100.0); Mean Platelet Volume 13.5 fL (9.4-12.4); Monocytes # (auto) 1.06 K/uL (0.11-0.59); Monocytes % (auto) 7.5 %; Neutrophils # (auto) 11.84 K/uL (1.40-6.50); Neutrophils % (auto) 83.8 %; Platelet Count 185 K/uL (130-400); RDW Coefficient of Variation 15.5 % (11.5-14.5); Red Blood Count 3.48 M/uL (4.70-6.10); White Blood Count 14.13 K/ul (4.8-10.8)
[2023-11-15] MEDS ORDERED: lisinopril 20 MG TAB PO SCH (09:00)
[2023-11-15] MEDS ORDERED: hydroCHLOROthiazide 25 MG TAB PO SCH (09:00)
--- NOTE | 2023-11-15 09:17 | Orthopedic Progress Note ---
Date of Service November 15, 2023 Assessment & Plan (1) T12 compression fracture: Plan: Bed rest today, possible PT tommorow Admission and Anticipated Discharge Date Admission Date: November 14, 2023 Subjective some grion pain, feet improved. No QUINONES or nausea Physical Exam Physical Exam: good strength in legs, sensory intact Results & Data Vital Signs (Past 12 Hours) Vital Signs Temp Pulse Resp BP Pulse Ox O2 Del Method O2 Flow Rate 11/15/23 07:20 Nasal Cannula 2 11/15/23 07:04 36.4 C L 79 18 109/62 98 Nasal Cannula 2 11/15/23 03:33 36.5 C 71 18 102/61 94 Nasal Cannula 2 11/15/23 02:19 36.4 C L 74 18 106/59 L 99 Nasal Cannula 2 11/15/23 00:57 36.4 C L 76 18 93/55 L 98 Nasal Cannula 2 11/14/23 23:54 92/55 L 11/14/23 23:20 36.6 C 80 18 94/55 L 98 Nasal Cannula 2
--- NOTE | 2023-11-15 13:17 | Hospitalist Progress Note ---
Date of Service November 15, 2023 Assessment & Plan (1) T12 compression fracture: (2) Pathologic fracture: (3) Spinal stenosis, thoracolumbar region: (4) Multiple myeloma: (5) HTN (hypertension): Plan This is a 78-year-old male who has significant past medical history of multiple myeloma currently on Revlimid therapy following [facility], HTN, GERD who presented for elective kyphoplasty and lumbar decompression surgery by Dr. Deshpande. T 12 pathologic burst fracture in setting of multiple myeloma with severe central canal stenosis S/P status post T12 kyphoplasty and T12-L1 decompression on 11/14/23 by Evacuation of hematoma and revision decompression T8 [address] Deshpande on 11/14/2023 Postoperative acute blood loss anemia--expected Activity as per primary team Continue wound care Pain control, DVT prophylaxis per orthopedics Continue bowel regimen to prevent constipation No indication for blood transfusion currently Leukocytosis likely secondary to steroids Hypertension Blood pressure low Hold lisinopril, HCTZ for now Monitor BP closely Multiple myeloma: Currently undergoing Revlimid therapy, 21-day cycle/7 days off, patient brought in his own supply Follows [facility], on apixaban for VTE prophylaxis DVT Px: Resume Eliquis as able once cleared by orthopedics SCDs fr now CODE STATUS FULL CODE Thank you for this consultation. We will follow the patient with you during their hospital stay. You can reach a member of the [facility] Hospitalist Team 17/10 via hospitalist role on tiger text. Admission and Anticipated Discharge Date Admission Date: November 14, 2023 Subjective Patient is seen and examined at bedside Back pain at surgical site is controlled Reports having constipation Denies any nausea, vomiting, abdominal pain, chest pain, dyspnea Family at bedside Also reports having some groin discomfort Review of Systems Review of Systems: All systems reviewed & are unremarkable except as noted in Subjective Physical Exam Physical Exam: Physical Exam: Vitals signs as noted above General Appearance:Moderately built and nourished, no apparent distress Head: normocephalic, Atraumatic Eyes: normal inspection, EOMI Neck: supple, Trachea midline Respiratory/Chest: Normal breath sounds, CTA, No accessory muscle use Cardiovascular: S1, S2, No murmur Abdomen/GI:Soft, Non tender, Bowel sounds present Back: Surgical site in dressing,+ drain Extremities/Musculoskeletal:normal inspection, no edema Neurologic/Psych:AAOX3, grossly no focal neurological deficits Skin: normal color, warm Results & Data Results & Data Vital Signs (Past 12 Hours) Vital Signs Temp Pulse Resp BP Pulse Ox O2 Del Method O2 Flow Rate 11/15/23 07:20 Nasal Cannula 2 11/15/23 07:04 36.4 C L 79 18 109/62 98 Nasal Cannula 2 11/15/23 03:33 36.5 C 71 18 102/61 94 Nasal Cannula 2 11/15/23 02:19 36.4 C L 74 18 106/59 L 99 Nasal Cannula 2 Laboratory Results Short CBC 11/15/23 Range/Units 05:27 WBC 14.13 H (4.8-10.8) K/ul Hgb 10.4 L (14.0-18.0) g/dl Hct 32.3 L (42.0-52.0) % Plt Count 185 (130-400) K/uL
[2023-11-16 06:12] LABS: Hematocrit (blood only) 28.3 % (42.0-52.0); Mean Corpuscular Hemoglobin 30.2 pg (25.0-34.0); Mean Corpuscular Hgb Conc 31.8 g/dL (32.0-36.0); Mean Platelet Volume 13.2 fL (9.4-12.4); Platelet Count 181 K/uL (130-400); RDW Coefficient of Variation 15.9 % (11.5-14.5); Red Blood Count 2.98 M/uL (4.70-6.10); White Blood Count 13.67 K/ul (4.8-10.8)
[2023-11-16 06:25] LABS: BUN Creatinine Ratio 48.9 (10-20); Calcium 7.8 mg/dl (8.6-10.3); Creatinine Clr Calc Pharmacy 54.7 ml/min; Est GFR (Non-African American) 76.8 ml/min; Magnesium 1.6 mg/dl (1.7-2.4); Potassium 3.5 mmol/L (3.5-5.1)
--- NOTE | 2023-11-16 08:49 | Orthopedic Progress Note ---
Date of Service November 16, 2023 Assessment & Plan (1) Spinal stenosis, thoracolumbar region: Plan: At this time we will discontinue his drain this morning. Once this is done we can begin transfers from bed to chair and bathroom privileges. If he tolerates activity today we will initiate formalized physical therapy tomorrow. Admission and Anticipated Discharge Date Admission Date: November 14, 2023 Subjective Is tolerating standard bed without difficulty. No nausea vomiting or headaches. Patient's back pain is controlled. Physical Exam Physical Exam: On exam I was able to have him sit up without difficulty. He is good strength testing. MIRTHA drain decreasing appropriately. Results & Data Vital Signs (Past 12 Hours) Vital Signs Temp Pulse Resp BP BP Pulse Ox O2 Del Method 11/16/23 08:40 80/48 L 11/16/23 08:35 85 86/49 L 11/16/23 08:30 71 73/43 L 11/16/23 07:49 94 H 94 Room Air 11/16/23 07:41 36.9 C 16 96/58 L 94 Room Air 11/15/23 20:55 36.8 C 86 16 121/73 95 Room Air
[2023-11-16] MEDS: dexAMETHasone 4 MG TAB PO SCH (08:50)
[2023-11-16] MEDS: SODIUM CHLORIDE 0.9% 500 ML IV ONE (09:03)
[2023-11-16] MEDS: MAGNESIUM CHLORIDE W/CALCIUM 64MG DELAYED REL TAB PO SCH (10:20)
[2023-11-16] MEDS: SODIUM CHLOR 0.45% + 20MEQ KCL 20 MEQ/1,000 ML BAG IV SCH (10:21)
--- NOTE | 2023-11-16 17:03 | Hospitalist Progress Note ---
Date of Service November 16, 2023 Assessment & Plan (1) T12 compression fracture: (2) Pathologic fracture: (3) Spinal stenosis, thoracolumbar region: (4) Multiple myeloma: (5) HTN (hypertension): Plan This is a 78-year-old male who has significant past medical history of multiple myeloma currently on Revlimid therapy following [facility], HTN, GERD who presented for elective kyphoplasty and lumbar decompression surgery by Dr. Deshpande. T 12 pathologic burst fracture in setting of multiple myeloma with severe central canal stenosis S/P status post T12 kyphoplasty and T12-L1 decompression on 11/14/23 by Evacuation of hematoma and revision decompression T8 [address] Deshpande on 11/14/2023 Postoperative acute blood loss anemia--expected Activity as per primary team Continue wound care Pain control, DVT prophylaxis per orthopedics Continue bowel regimen to prevent constipation No indication for blood transfusion currently Leukocytosis likely secondary to steroids Monitor CBC closely Continue PT OT Hypertension Currently hypotensive Hold lisinopril, HCTZ for now Monitor BP closely IV fluids as needed Hypomagnesemia Replete electrolytes as needed Monitor Multiple myeloma: Currently undergoing Revlimid therapy, 21-day cycle/7 days off, patient brought in his own supply Follows [facility], on apixaban for VTE prophylaxis DVT Px: Resume Eliquis as able once cleared by orthopedics SCDs fr now CODE STATUS FULL CODE Thank you for this consultation. We will follow the patient with you during their hospital stay. You can reach a member of the [facility] Hospitalist Team 17/10 via hospitalist role on tiger text. Admission and Anticipated Discharge Date Admission Date: November 14, 2023 Subjective Patient is seen and examined at bedside Noted to be dizzy especially with PT this morning Back pain much improved Still reports constipation Denies any nausea, vomiting, abdominal pain, chest pain, dyspnea Review of Systems Review of Systems: All systems reviewed & are unremarkable except as noted in Subjective Physical Exam Physical Exam: Physical Exam: Vitals signs as noted above General Appearance:Moderately built and nourished, no apparent distress Head: normocephalic, Atraumatic Eyes: normal inspection, EOMI Neck: supple, Trachea midline Respiratory/Chest: Normal breath sounds, CTA, No accessory muscle use Cardiovascular: S1, S2, No murmur Abdomen/GI:Soft, Non tender, Bowel sounds present Back: Surgical site in dressing,+ drain Extremities/Musculoskeletal:normal inspection, no edema Neurologic/Psych:AAOX3, grossly no focal neurological deficits Skin: normal color, warm Results & Data Results & Data Vital Signs (Past 12 Hours) Vital Signs Temp Pulse Resp BP BP Pulse Ox O2 Del Method 11/16/23 13:38 36.9 C 102 H 18 92/52 L 94 Room Air 11/16/23 13:14 103 H 98/58 L 95 Room Air 11/16/23 10:12 92/68 L 11/16/23 08:40 80/48 L 11/16/23 08:35 85 86/49 L 11/16/23 08:30 Room Air 11/16/23 08:30 71 73/43 L 11/16/23 07:49 94 H 94 Room Air 11/16/23 07:41 36.9 C 16 96/58 L 94 Room Air Laboratory Results Short CBC 11/16/23 Range/Units 05:27 WBC 13.67 H (4.8-10.8) K/ul Hgb 9.0 L (14.0-18.0) g/dl Hct 28.3 L (42.0-52.0) % Plt Count 181 (130-400) K/uL BMP 11/16/23 05:27 Sodium 138 Potassium 3.5 Chloride 101 Carbon Dioxide 34 H BUN 46 H Creatinine 0.94 Glucose 112 H Calcium 7.8 L
[2023-11-17 06:07] LABS: Hematocrit (blood only) 21.7 % (42.0-52.0); Mean Corpuscular Hemoglobin 30.2 pg (25.0-34.0); Mean Corpuscular Hgb Conc 32.3 g/dL (32.0-36.0); Mean Corpuscular Volume 93.5 fL (80.0-100.0); Mean Platelet Volume 13.4 fL (9.4-12.4); Platelet Count 183 K/uL (130-400); RDW Coefficient of Variation 16.1 % (11.5-14.5); RDW Standard Deviation 54.9 fL (36.4-46.3); Red Blood Count 2.32 M/uL (4.70-6.10); White Blood Count 21.29 K/ul (4.8-10.8)
[2023-11-17 06:54] LABS: BUN Creatinine Ratio 83.9 (10-20); Calcium 7.7 mg/dl (8.6-10.3); Creatinine Clr Calc Pharmacy 59.1 ml/min; Est GFR (African American) 95.1 ml/min; Est GFR (Non-African American) 82.1 ml/min; Magnesium 1.7 mg/dl (1.7-2.4); Potassium 4.2 mmol/L (3.5-5.1)
--- NOTE | 2023-11-17 08:03 | Hospitalist Progress Note ---
Date of Service November 17, 2023 Assessment & Plan (1) T12 compression fracture: (2) Pathologic fracture: (3) Spinal stenosis, thoracolumbar region: (4) Multiple myeloma: (5) HTN (hypertension): Plan This is a 78-year-old male who has significant past medical history of multiple myeloma currently on Revlimid therapy following [facility], HTN, GERD who presented for elective kyphoplasty and lumbar decompression surgery by Dr. Deshpande. T 12 pathologic burst fracture in setting of multiple myeloma with severe central canal stenosis S/P status post T12 kyphoplasty and T12-L1 decompression on 11/14/23 by Evacuation of hematoma and revision decompression T8 [address] Deshpande on 11/14/2023 Postoperative acute blood loss anemia Activity as per primary team Continue wound care Pain control, DVT prophylaxis per orthopedics Continue bowel regimen to prevent constipation No indication for blood transfusion currently Leukocytosis likely secondary to steroids Monitor CBC closely Continue PT OT Hb dropped to 7.0 today Will transfuse 1 unit PRBC today Monitor H&H Hypertension Currently hypotensive Hold lisinopril, HCTZ for now Monitor BP closely IV fluids as needed SIRS No obvious source of infection Normal Lactate levels Nasal MRSA negative Blood culture: pending Empirically started on Zosyn Hypomagnesemia Replete electrolytes as needed Monitor Multiple myeloma: Currently undergoing Revlimid therapy, 21-day cycle/7 days off, patient brought in his own supply Follows [facility], on apixaban for VTE prophylaxis DVT Px: Resume Eliquis as able once cleared by orthopedics SCDs for now CODE STATUS FULL CODE Thank you for this consultation. We will follow the patient with you during their hospital stay. You can reach a member of the [facility] Hospitalist Team 17/10 via hospitalist role on tiger text. Admission and Anticipated Discharge Date Admission Date: November 14, 2023 Subjective Patient is seen and examined at bedside Dizziness resolved Back pain at surgical site is controlled Noted drop in hemoglobin Denies any nausea, vomiting, abdominal pain, chest pain, dyspnea Review of Systems Review of Systems: All systems reviewed & are unremarkable except as noted in Subjective Physical Exam Physical Exam: Physical Exam: Vitals signs as noted above General Appearance:Moderately built and nourished, no apparent distress Head: normocephalic, Atraumatic Eyes: normal inspection, EOMI Neck: supple, Trachea midline Respiratory/Chest: Normal breath sounds, CTA, No accessory muscle use Cardiovascular: S1, S2, No murmur Abdomen/GI:Soft, Non tender, Bowel sounds present Back: Surgical site in dressing,+ drain Extremities/Musculoskeletal:normal inspection, no edema Neurologic/Psych:AAOX3, grossly no focal neurological deficits Skin: normal color, warm Results & Data Results & Data Vital Signs (Past 12 Hours) Vital Signs Temp Pulse Resp BP Pulse Ox O2 Del Method 11/17/23 07:56 36.5 C 86 18 100/62 96 Room Air 11/16/23 20:55 36.9 C 89 16 96/57 L 94 Room Air 11/16/23 20:15 Room Air Laboratory Results Short CBC 11/17/23 Range/Units 05:47 WBC 21.29 H (4.8-10.8) K/ul Hgb 7.0 L (14.0-18.0) g/dl Hct 21.7 L (42.0-52.0) % Plt Count 183 (130-400) K/uL BMP 11/17/23 05:47 Sodium 137 Potassium 4.2 Chloride 109 H Carbon Dioxide 26 BUN 73 H D Creatinine 0.87 Glucose 132 H Calcium 7.7 L
[2023-11-17] MEDS ORDERED: SODIUM CHLORIDE 0.9% 250 ML IV PRN ×2 (08:04→21:32)
[2023-11-17] MEDS: 4.5GM X1 IV STA (09:08)
[2023-11-17] MEDS: SODIUM CHLORIDE 0.9% 1,000 ML IV ONE ×2 (09:10→22:16)
[2023-11-17] MEDS: PIPERACILLIN/TAZOBACTAM 4.5 GM/100 ML BAG IV SCH (13:40)
--- NOTE | 2023-11-17 13:55 | Orthopedic Progress Note ---
Date of Service November 17, 2023 Assessment & Plan (1) T12 compression fracture: Plan: At this time we will continue bed to chair with bathroom [place]. I will assess his progress and tomorrow hopefully initiate physical therapy. Admission and Anticipated Discharge Date Admission Date: November 14, 2023 Subjective Back pain is controlled. He was able to get to the restroom yesterday. No bowel movement at this time. Physical Exam Physical Exam: On exam he appears comfortable. Is good strength testing lower extremities. Abdomen is soft. Results & Data Vital Signs (Past 12 Hours) Vital Signs Temp Pulse Pulse Resp BP BP Pulse Ox 11/17/23 12:58 102 H 92/60 L 96 11/17/23 12:47 36.6 C 99 H 16 86/56 L 96 11/17/23 08:00 11/17/23 07:56 36.5 C 86 18 100/62 96 O2 Del Method 11/17/23 12:58 Room Air 11/17/23 12:47 Room Air 11/17/23 08:00 Room Air 11/17/23 07:56 Room Air
[2023-11-17 21:18] LABS: Hematocrit (blood only) 19.9 % (42.0-52.0); Hemoglobin 6.4 g/dl (14.0-18.0)
[2023-11-17 21:31] LABS: BUN Creatinine Ratio 56.1 (10-20); Calcium 7.6 mg/dl (8.6-10.3); Creatinine Clr Calc Pharmacy 45.1 ml/min; Est GFR (African American) 70.5 ml/min; Est GFR (Non-African American) 60.8 ml/min; Potassium 3.7 mmol/L (3.5-5.1)
[2023-11-18] MEDS ORDERED: DEXAMETHASONE SOD INJ 4 MG/ML VIAL IV STA (05:54)
[2023-11-18] MEDS: dexAMETHasone 4 MG in SYRINGE 0 ML IV ONE (06:10)
[2023-11-18 07:37] LABS: BUN Creatinine Ratio 49.5 (10-20); Calcium 7.4 mg/dl (8.6-10.3); Creatinine Clr Calc Pharmacy 47.2 ml/min; Est GFR (African American) 74.4 ml/min; Est GFR (Non-African American) 64.2 ml/min; Magnesium 1.7 mg/dl (1.7-2.4); Potassium 4.1 mmol/L (3.5-5.1)
[2023-11-18 08:00] LABS: Hematocrit (blood only) 22.1 % (42.0-52.0); Mean Corpuscular Hemoglobin 29.8 pg (25.0-34.0); Mean Corpuscular Hgb Conc 31.7 g/dL (32.0-36.0); Mean Platelet Volume 13.3 fL (9.4-12.4); Platelet Count 152 K/uL (130-400); RDW Coefficient of Variation 16.5 % (11.5-14.5); RDW Standard Deviation 55.4 fL (36.4-46.3); Red Blood Count 2.35 M/uL (4.70-6.10)
[2023-11-18 08:01] LABS: Anisocytosis Present; Basophils # (auto) 0.02 K/uL (0.00-0.20); Basophils % (auto) 0.2 %; Eosinophils # (auto) 0.07 K/uL (0.00-0.50); Eosinophils % (auto) 0.6 %; Hypochromasia Present; Immature Granulocytes # (auto) 0.09 K/uL (0.01-0.20); Immature Granulocytes % (auto) 0.7 %; Lymphocytes # (auto) 2.02 K/uL (1.20-3.40); Lymphocytes % (auto) 15.9 %; Monocytes # (auto) 1.73 K/uL (0.11-0.59); Monocytes % (auto) 13.6 %; Neutrophils # (auto) 8.77 K/uL (1.40-6.50); Ovalocytes 1+
[2023-11-18] MEDS: bisacodyL 10 MG SUPP PR PRN (09:21)
[2023-11-18] MEDS ORDERED: SODIUM CHLORIDE 0.9% 250 ML IV PRN (09:34)
--- NOTE | 2023-11-18 09:37 | Orthopedic Progress Note ---
Date of Service November 18, 2023 Assessment & Plan (1) Spinal stenosis, thoracolumbar region: Plan: At this time initiate a formal physical therapy. Continue his bowel regimen. Plan for discharge early next week. Admission and Anticipated Discharge Date Admission Date: November 14, 2023 Subjective Patient's back pain is controlled. Leg pain improved. He is ambulating in the room. Still not had a bowel movement. Physical Exam Physical Exam: On exam is currently in bed. Abdomen is soft. Neurologically intact. Results & Data Vital Signs (Past 12 Hours) Vital Signs Temp Pulse Pulse Resp BP BP BP 11/18/23 06:30 36.3 C L 85 98/61 L 11/18/23 04:46 36.7 C 85 15 90/55 L 11/18/23 04:43 36.7 C 86 15 93/59 L 11/18/23 04:16 36.4 C L 86 15 93/60 L 11/18/23 04:01 36.6 C 87 16 95/65 L 11/18/23 03:34 36.8 C 90 18 94/59 L 11/18/23 03:18 36.7 C 90 16 90/57 L 11/18/23 01:30 36.8 C 90 16 95/60 L 11/17/23 23:13 36.5 C 87 14 95/57 L Pulse Ox O2 Del Method 11/18/23 06:30 99 11/18/23 04:46 99 11/18/23 04:43 98 11/18/23 04:16 99 11/18/23 04:01 96 11/18/23 03:34 11/18/23 03:18 94 Room Air 11/18/23 01:30 93 Room Air 11/17/23 23:13 92 Room Air
--- NOTE | 2023-11-18 16:04 | Hospitalist Progress Note ---
Date of Service November 18, 2023 Assessment & Plan (1) T12 compression fracture: (2) Pathologic fracture: (3) Spinal stenosis, thoracolumbar region: (4) Multiple myeloma: (5) HTN (hypertension): Plan This is a 78-year-old male who has significant past medical history of multiple myeloma currently on Revlimid therapy following [facility], HTN, GERD who presented for elective kyphoplasty and lumbar decompression surgery by Dr. Deshpande. T 12 pathologic burst fracture in setting of multiple myeloma with severe central canal stenosis S/P status post T12 kyphoplasty and T12-L1 decompression on 11/14/23 by Evacuation of hematoma and revision decompression T8 [address] Deshpande on 11/14/2023 Postoperative acute blood loss anemia Activity as per primary team Continue wound care Pain control, DVT prophylaxis per orthopedics Continue bowel regimen to prevent constipation No indication for blood transfusion currently Leukocytosis likely secondary to steroids Monitor CBC closely Continue PT OT Hb dropped to 6.4 S/P 1 unit PRBC Monitor H&H Will transfuse 1 more unit of PRBC today Hypertension Currently hypotensive Hold lisinopril, HCTZ for now Monitor BP closely IV fluids as needed SIRS No obvious source of infection Normal Lactate levels Nasal MRSA negative Blood culture: Negative to date Empirically started on Zosyn Leukocytosis trending down Hypomagnesemia Replete electrolytes as needed Monitor Multiple myeloma: Currently undergoing Revlimid therapy, 21-day cycle/7 days off, patient brought in his own supply Follows [facility], on apixaban for VTE prophylaxis DVT Px: Resume Eliquis as able once cleared by orthopedics SCDs for now CODE STATUS FULL CODE Thank you for this consultation. We will follow the patient with you during their hospital stay. You can reach a member of the [facility] Hospitalist Team 17/10 via hospitalist role on tiger text. Admission and Anticipated Discharge Date Admission Date: November 14, 2023 Subjective Patient is seen and examined at bedside States feeling a lot better today No recurrence of dizziness Back pain is controlled Had bowel movement Denies any nausea, vomiting, abdominal pain, chest pain, dyspnea Review of Systems Review of Systems: All systems reviewed & are unremarkable except as noted in Subjective Physical Exam Physical Exam: Physical Exam: Vitals signs as noted above General Appearance:Moderately built and nourished, no apparent distress Head: normocephalic, Atraumatic Eyes: normal inspection, EOMI Neck: supple, Trachea midline Respiratory/Chest: Normal breath sounds, CTA, No accessory muscle use Cardiovascular: S1, S2, No murmur Abdomen/GI:Soft, Non tender, Bowel sounds present Back: Surgical site in dressing,+ drain Extremities/Musculoskeletal:normal inspection, no edema Neurologic/Psych:AAOX3, grossly no focal neurological deficits Skin: normal color, warm Results & Data Results & Data Vital Signs (Past 12 Hours) Vital Signs Temp Pulse Resp BP Pulse Ox O2 Del Method 11/18/23 14:46 37 C 90 18 102/58 L 98 11/18/23 13:56 37.1 C 95 H 20 112/60 100 11/18/23 13:30 36.7 C 95 H 20 111/66 99 11/18/23 12:56 36.8 C 100 H 18 93/55 L 96 11/18/23 12:26 36.8 C 101 H 20 103/58 L 100 11/18/23 12:11 36.7 C 95 H 18 104/64 98 11/18/23 11:54 37.0 C 88 16 95/59 L 97 11/18/23 07:35 Room Air 11/18/23 06:30 36.3 C L 85 98/61 L 99 11/18/23 04:46 36.7 C 85 15 90/55 L 99 11/18/23 04:43 36.7 C 86 15 93/59 L 98 11/18/23 04:16 36.4 C L 86 15 93/60 L 99 Laboratory Results Short CBC 11/17/23 11/18/23 Range/Units 20:56 06:43 WBC 12.70 H (4.8-10.8) K/ul Hgb 6.4 L* 7.0 L (14.0-18.0) g/dl Hct 19.9 L* 22.1 L (42.0-52.0) % Plt Count 152 (130-400) K/uL BMP 11/17/23 11/18/23 20:56 06:43 Sodium 139 141 Potassium 3.7 4.1 Chloride 110 H 112 H Carbon Dioxide 24 26 BUN 64 H 54 H Creatinine 1.14 1.09 Glucose 100 H 105 H Calcium 7.6 L 7.4 L
[2023-11-18 16:18] LABS: Hematocrit (blood only) 24.8 % (42.0-52.0); Hemoglobin 8.2 g/dl (14.0-18.0)
[2023-11-19 07:16] LABS: Basophils # (auto) 0.01 K/uL (0.00-0.20); Basophils % (auto) 0.1 %; Eosinophils # (auto) 0.11 K/uL (0.00-0.50); Eosinophils % (auto) 1.3 %; Hematocrit (blood only) 23.2 % (42.0-52.0); Hemoglobin 7.4 g/dl (14.0-18.0); Immature Granulocytes # (auto) 0.05 K/uL (0.01-0.20); Immature Granulocytes % (auto) 0.6 %; Lymphocytes # (auto) 1.77 K/uL (1.20-3.40); Lymphocytes % (auto) 20.7 %; Mean Corpuscular Hemoglobin 29.4 pg (25.0-34.0); Mean Corpuscular Hgb Conc 31.9 g/dL (32.0-36.0); Mean Corpuscular Volume 92.1 fL (80.0-100.0); Mean Platelet Volume 12.9 fL (9.4-12.4); Monocytes # (auto) 1.45 K/uL (0.11-0.59); Neutrophils # (auto) 5.16 K/uL (1.40-6.50); Neutrophils % (auto) 60.3 %; Platelet Count 150 K/uL (130-400); RDW Coefficient of Variation 16.7 % (11.5-14.5); Red Blood Count 2.52 M/uL (4.70-6.10); White Blood Count 8.55 K/ul (4.8-10.8)
[2023-11-19 07:46] LABS: Anisocytosis Present; Hypochromasia Present; Ovalocytes 1+; Tear Drop Cells 1+
[2023-11-19 07:48] LABS: Calcium 7.7 mg/dl (8.6-10.3); Creatinine Clr Calc Pharmacy 58.5 ml/min; Est GFR (African American) 94.7 ml/min; Est GFR (Non-African American) 81.7 ml/min; Potassium 3.7 mmol/L (3.5-5.1)
[2023-11-19] MEDS: ACETAMINOPHEN 500 MG TAB PO PRN (08:18)
--- NOTE | 2023-11-19 10:41 | Orthopedic Progress Note ---
Date of Service November 19, 2023 Assessment & Plan (1) T12 compression fracture: Plan: This something physical therapy plan for rehab placement for tomorrow. Admission and Anticipated Discharge Date Admission Date: November 14, 2023 Subjective Bowels working well. Back pain controlled. Tolerating physical therapy. Physical Exam Physical Exam: On exam he is currently in bed. Constricted testing. Results & Data Vital Signs (Past 12 Hours) Vital Signs Temp Pulse Resp BP Pulse Ox O2 Del Method 11/19/23 07:26 36.7 C 76 20 131/69 96 Room Air
[2023-11-19] MEDS: PANTOprazole 40 MG in SYRINGE 0 ML IV SCH (11:38)
[2023-11-19] MEDS ORDERED: SODIUM CHLORIDE 0.9% 250 ML IV PRN (12:29)
--- NOTE | 2023-11-19 12:29 | XRay Report ---
XR hip LT 2V w pelvis CLINICAL HISTORY: Left hip pain. COMPARISON STUDY: None. FINDINGS: There is a left femoral intramedullary danette within interlocking femoral neck pin. Sclerosis within the intertrochanteric portion of the left femur with a small linear incomplete lucency near th e base of the lesser trochanter of the left femur. This is best seen image 4. This favors a subacute to chronic incomplete fracture of the left femur. Otherwise, no acute fracture or dislocation within the pelvis or hips. Cholelithiasis noted within the right mid abdomen. IMPRESSION: Sclerosis within the intertrochanteric portion of the left femur with a small linear inc omplete lucency near the base of the lesser trochanter of the left femur. This favors a subacute to c hronic incomplete fracture of the left femur. Otherwise, no acute fracture or dislocation within the pelvis or hips. ACT 112: Negative or not required by law. Electronically signed by: Romeo Cruz M.D. 11/19/2023 12:27 PM
[2023-11-19 13:16] LABS: Hematocrit (blood only) 26.6 % (42.0-52.0); Hemoglobin 8.4 g/dl (14.0-18.0)
--- NOTE | 2023-11-19 14:55 | Hospitalist Progress Note ---
Date of Service November 19, 2023 Assessment & Plan (1) T12 compression fracture: (2) Pathologic fracture: (3) Spinal stenosis, thoracolumbar region: (4) Multiple myeloma: (5) HTN (hypertension): Plan This is a 78-year-old male who has significant past medical history of multiple myeloma currently on Revlimid therapy following [facility], HTN, GERD who presented for elective kyphoplasty and lumbar decompression surgery by Dr. Deshpande. T 12 pathologic burst fracture in setting of multiple myeloma with severe central canal stenosis S/P status post T12 kyphoplasty and T12-L1 decompression on 11/14/23 by Evacuation of hematoma and revision decompression T8 [address] Deshpande on 11/14/2023 Postoperative acute blood loss anemia Activity as per primary team Continue wound care Pain control, DVT prophylaxis per orthopedics Continue bowel regimen to prevent constipation Leukocytosis likely secondary to steroids Monitor CBC closely Continue PT OT S/P 2 unit PRBC Monitor H&H Hb 8.4 today May need rehab placement Melena H/O hemorrhoids per patient S/P PRBCs as above Monitor H&H and transfuse as needed Continue IV Protonix Liquid diet for today GI consulted Hypertension BP low on presentation Hold lisinopril, HCTZ for now Monitor BP closely SIRS No obvious source of infection Normal Lactate levels Nasal MRSA negative Blood culture: Negative to date Empirically received Zosyn Leukocytosis resolved Hypomagnesemia Replete electrolytes as needed Monitor Multiple myeloma: Currently undergoing Revlimid therapy, 21-day cycle/7 days off, patient brought in his own supply Follows [facility], on apixaban for VTE prophylaxis DVT Px: Eliquis held: Surgery, melena, significant anemia SCDs for now CODE STATUS FULL CODE Thank you for this consultation. We will follow the patient with you during their hospital stay. You can reach a member of the [facility] Hospitalist Team 17/10 via hospitalist role on tiger text. Admission and Anticipated Discharge Date Admission Date: November 14, 2023 Subjective Patient is seen and examined at bedside Patient noted to have melena by RN today Reports having diarrhea which he attributes to medications Back pain is controlled Denies any nausea, vomiting, abdominal pain, chest pain, dyspnea Review of Systems Review of Systems: All systems reviewed & are unremarkable except as noted in Subjective Physical Exam Physical Exam: Physical Exam: Vitals signs as noted above General Appearance:Moderately built and nourished, no apparent distress Head: normocephalic, Atraumatic Eyes: normal inspection, EOMI Neck: supple, Trachea midline Respiratory/Chest: Normal breath sounds, CTA, No accessory muscle use Cardiovascular: S1, S2, No murmur Abdomen/GI:Soft, Non tender, Bowel sounds present Back: Surgical site in dressing,+ drain Extremities/Musculoskeletal:normal inspection, no edema Neurologic/Psych:AAOX3, grossly no focal neurological deficits Skin: normal color, warm Results & Data Results & Data Vital Signs (Past 12 Hours) Vital Signs Temp Pulse Resp BP Pulse Ox O2 Del Method 11/19/23 07:26 36.7 C 76 20 131/69 96 Room Air Laboratory Results Short CBC 11/18/23 11/19/23 11/19/23 Range/Units 15:33 06:06 12:54 WBC 8.55 (4.8-10.8) K/ul Hgb 8.2 L 7.4 L 8.4 L (14.0-18.0) g/dl Hct 24.8 L 23.2 L 26.6 L (42.0-52.0) % Plt Count 150 (130-400) K/uL BMP 11/19/23 06:06 Sodium 140 Potassium 3.7 Chloride 109 H Carbon Dioxide 27 BUN 29 H D Creatinine 0.88 Glucose 100 H Calcium 7.7 L
--- NOTE | 2023-11-19 17:37 | Gastrointestinal Consultation ---
Date of Consultation November 19, 2023 Assessment & Plan (1) Complaint of melena: Pleasant man with reported melena by nurse. Patient denies bleeding feels the stool was dark since it had been 5 days since his last bowel movement. His H/H are stable so will observe for now. Will watch for more problems with melena and also follow his hemoglobin. History of Present Illness Reason for Consultation: melena Attending Physician: Anival Deshpande DO History of Present Illness 78 year old man s/p back surgery had reported dark stool today by nurse. Patient admits it was dark but claims it was from all of the miralax he is getting. He denies abdominal pain, indigestion or nausea or vomiting. Has never had problem with black stools before but does have frequent rectal bleeding from hemorrhoids. He has never seen a GI doctor nor has he had an EGD or colonoscopy. He currently feels well. H/H are stable for him Allergies Allergy/AdvReac Type Severity Reaction Status Date / Time No Known Allergies Allergy Verified 11/14/23 08:19 Home Medications Medication Instructions Recorded Confirmed Type acyclovir 200 mg capsule 400 mg PO BID 11/03/23 11/14/23 History apixaban 5 mg tablet 2.5 mg PO BID 11/03/23 11/14/23 History calcium carbonate 500 mg PO BID 11/03/23 11/14/23 History cholecalciferol (vitamin D3) 50 50 mcg PO BID 11/03/23 11/14/23 History mcg (2,000 unit) tablet (Vitamin D3) dexamethasone 4 mg tablet 4 mg PO DIRECTED 11/03/23 11/14/23 History famotidine 20 mg tablet (Pepcid) 20 mg PO DAILY PRN Acid Reflux 11/03/23 11/14/23 History hydrochlorothiazide 25 mg tablet 25 mg PO QAM 11/03/23 11/14/23 History lenalidomide 10 mg capsule 10 mg PO DIRECTED 11/03/23 11/14/23 History (Revlimid) lisinopril 20 mg tablet 20 mg PO QAM 11/03/23 11/14/23 History tramadol 50 mg tablet 50 mg PO Q6H PRN pain, moderate 11/19/23 Rx #30 tabs Patient History Medical History Poor historian Acid reflux Occasional Osteoarthritis On anticoagulant therapy Pharmacy note indication: "VTE prophylaxis while on Revlimid" No personal hx of DVT/PE History of COVID-19 01/2023 HTN (hypertension) Multiple myeloma Dx 07/2022 Surgical History History of surgery on lower extremity Left femur titanium danette Hx of hernia repair History of arthroscopy left knee History of tooth extraction History of hip surgery left Social History Smoking Status: Former smoker Smoking End Date: 10+ years ago; Second Hand Exposure: No; Do You Dip or Chew Tobacco: No; Tobacco Cessation Education Requested by Patient: No Hx Alcohol Use: No Hx Substance Use: No Preferred Language: Danish Communication Ability: Effective [employer] Supervisor Required: No Beliefs That Will Affect Care: None Current Living Situation: Alone Other Information That Helps Us Care for You: No Feels Safe at Home: Yes Safety Concerns: Feels Safe At This Time Assistive Devices: Walker Review of Systems Review of Systems: All systems reviewed & are unremarkable except as noted in HPI & below Physical Exam Constitutional: WD/WN, vitals as above Neck: trachea midline, no thyromegaly Respiratory: normal respiratory effort, lungs clear to auscultation Cardiovascular: RRR, no murmur, no edema Gastrointestinal (Abdomen): normal bowel sounds, soft, nontender, no hepatosplenomegaly Results & Data Vital Signs (Past 12 Hours) Vital Signs Temp Pulse Resp BP Pulse Ox O2 Del Method 11/19/23 14:58 36.6 C 80 16 116/61 92 Room Air 11/19/23 07:26 36.7 C 76 20 131/69 96 Room Air Laboratory Results 11/19/23 11/19/23 11/19/23 Range/Units Unknown 12:54 06:06 WBC 8.55 (4.8-10.8) K/ul RBC 2.52 L (4.70-6.10) M/uL Hgb 8.4 L 7.4 L (14.0-18.0) g/dl Hct 26.6 L 23.2 L (42.0-52.0) % MCV 92.1 (80.0-100.0) fL MCH 29.4 (25.0-34.0) pg MCHC 31.9 L (32.0-36.0) g/dL RDW Std Deviation 56.0 H (36.4-46.3) fL RDW Coeff of Rohini 16.7 H (11.5-14.5) % Plt Count 150 (130-400) K/uL MPV 12.9 H (9.4-12.4) fL Immature Gran % (Auto) 0.6 % Neut % (Auto) 60.3 % Lymph % (Auto) 20.7 % [place] % (Auto) 17.0 % Eos % (Auto) 1.3 % Baso % (Auto) 0.1 % Neut # (Auto) 5.16 (1.40-6.50) K/uL Lymph # (Auto) 1.77 (1.20-3.40) K/uL [place] # (Auto) 1.45 H (0.11-0.59) K/uL Eos # (Auto) 0.11 (0.00-0.50) K/uL Baso # (Auto) 0.01 (0.00-0.20) K/uL Immature Gran # (Auto) 0.05 (0.01-0.20) K/uL Hypochromasia Present Anisocytosis Present Tear Drop Cells 1+ Ovalocytes 1+ Sodium 140 (136-145) mmol/L Potassium 3.7 (3.5-5.1) mmol/L Chloride 109 H (98-107) mmol/L Carbon Dioxide 27 (21-32) mmol/L Anion Gap 4 (3-11) BUN 29 H D (6-23) mg/dl Creatinine 0.88 (0.6-1.4) mg/dl Est Cr Clr Drug Dosing 58.5 ml/min Est GFR ( Amer) 94.7 ml/min Est GFR (Non-Af Amer) 81.7 ml/min BUN/Creatinine Ratio 33.0 H (10-20) Glucose 100 H (70-99(Fasting)) mg/dl Calcium 7.7 L (8.6-10.3) mg/dl Stool Occult Bld Scrn Positive A (Negative) Blood Type Antibody Screen Antibody Identification Antibody ID Comment Crossmatch 11/17/23 Range/Units 08:42 WBC (4.8-10.8) K/ul RBC (4.70-6.10) M/uL Hgb (14.0-18.0) g/dl Hct (42.0-52.0) % MCV (80.0-100.0) fL MCH (25.0-34.0) pg MCHC (32.0-36.0) g/dL RDW Std Deviation (36.4-46.3) fL RDW Coeff of Rohini (11.5-14.5) % Plt Count (130-400) K/uL MPV (9.4-12.4) fL Immature Gran % (Auto) % Neut % (Auto) % Lymph % (Auto) % [place] % (Auto) % Eos % (Auto) % Baso % (Auto) % Neut # (Auto) (1.40-6.50) K/uL Lymph # (Auto) (1.20-3.40) K/uL [place] # (Auto) (0.11-0.59) K/uL Eos # (Auto) (0.00-0.50) K/uL Baso # (Auto) (0.00-0.20) K/uL Immature Gran # (Auto) (0.01-0.20) K/uL Hypochromasia Anisocytosis Tear Drop Cells Ovalocytes Sodium (136-145) mmol/L Potassium (3.5-5.1) mmol/L Chloride (98-107) mmol/L Carbon Dioxide (21-32) mmol/L Anion Gap (3-11) BUN (6-23) mg/dl Creatinine (0.6-1.4) mg/dl Est Cr Clr Drug Dosing ml/min Est GFR ( Amer) ml/min Est GFR (Non-Af Amer) ml/min BUN/Creatinine Ratio (10-20) Glucose (70-99(Fasting)) mg/dl Calcium (8.6-10.3) mg/dl Stool Occult Bld Scrn (Negative) Blood Type O Positive Antibody Screen POSITIVE A Antibody Identification Panagglutinin due to drug Antibody ID Comment Cancelled Crossmatch See Detail
[2023-11-19] MEDS: DOCUSATE SODIUM/SENNA 50/8.6MG TAB PO SCH (21:21)
[2023-11-19 21:58] LABS: Hematocrit (blood only) 23.4 % (42.0-52.0); Hemoglobin 7.5 g/dl (14.0-18.0)
[2023-11-20 07:07] LABS: Hematocrit (blood only) 21.9 % (42.0-52.0); Hemoglobin 7.1 g/dl (14.0-18.0); Mean Corpuscular Hemoglobin 30.2 pg (25.0-34.0); Mean Corpuscular Hgb Conc 32.4 g/dL (32.0-36.0); Mean Corpuscular Volume 93.2 fL (80.0-100.0); Mean Platelet Volume 12.9 fL (9.4-12.4); Nucleated RBC # (auto) 0.03 K/uL (0.00-0.12); Nucleated RBC % (auto) 0.6 %; Platelet Count 146 K/uL (130-400); RDW Coefficient of Variation 16.4 % (11.5-14.5); RDW Standard Deviation 54.7 fL (36.4-46.3); Red Blood Count 2.35 M/uL (4.70-6.10)
[2023-11-20 07:32] LABS: BUN Creatinine Ratio 22.9 (10-20); Calcium 7.3 mg/dl (8.6-10.3); Est GFR (Non-African American) 83.7 ml/min; Magnesium 1.8 mg/dl (1.7-2.4); Potassium 3.5 mmol/L (3.5-5.1)
--- NOTE | 2023-11-20 11:44 | Gastroenterology Progress Note ---
Date of Service November 20, 2023 Assessment & Plan (1) Complaint of melena: Plan: I am not sure if he had melena or not but it seems to have stopped. H/H have been low all along. Will continue to observe as he recovers from surgery. Will follow and step in with endoscopy based on his clinical course. Admission and Anticipated Discharge Date Admission Date: November 14, 2023 Subjective Stools reported as brown today. H/H bouncing around a little but a little lower than the last two times it was checked Results & Data Vital Signs (Past 12 Hours) Vital Signs Temp Pulse Resp BP Pulse Ox O2 Del Method 11/20/23 08:01 36.4 C L 85 19 142/78 H 98 Room Air 11/20/23 08:00 Room Air
[2023-11-20 13:29] LABS: Hemoglobin 8.1 g/dl (14.0-18.0)
--- NOTE | 2023-11-20 17:32 | Hospitalist Progress Note ---
Date of Service November 20, 2023 Assessment & Plan (1) T12 compression fracture: (2) Pathologic fracture: (3) Spinal stenosis, thoracolumbar region: (4) Multiple myeloma: (5) HTN (hypertension): Plan This is a 78-year-old male who has significant past medical history of multiple myeloma currently on Revlimid therapy following [facility], HTN, GERD who presented for elective kyphoplasty and lumbar decompression surgery by Dr. Deshpande. T 12 pathologic burst fracture in setting of multiple myeloma with severe central canal stenosis S/P status post T12 kyphoplasty and T12-L1 decompression on 11/14/23 by Evacuation of hematoma and revision decompression T8 [address] Deshpande on 11/14/2023 Postoperative acute blood loss anemia Activity as per primary team Continue wound care Pain control, DVT prophylaxis per orthopedics Continue bowel regimen to prevent constipation Leukocytosis resolved Monitor CBC closely Continue PT OT S/P 2 unit PRBC Monitor H&H Hb 8.1 today Plan to discharge to rehab facility as able Melena H/O hemorrhoids per patient S/P PRBCs as above Monitor H&H and transfuse as needed Continue IV Protonix Liquid diet for today Appreciate GI input Advance diet as tolerated Hb 8.1 today Acute on chronic anemia Multifactorial: Postoperative acute blood loss anemia, hemodilutional, GI bleed, multiple myeloma Monitor CBC closely Transfuse PRBCs as needed Hypertension Bp variable Hold lisinopril, HCTZ for now Monitor BP closely SIRS No obvious source of infection Normal Lactate levels Nasal MRSA negative Blood culture: Negative to date Empirically received Zosyn--discontinued Leukocytosis resolved Hypomagnesemia Replete electrolytes as needed Monitor Multiple myeloma: Currently undergoing Revlimid therapy, 21-day cycle/7 days off, patient brought in his own supply Follows [facility], on apixaban for VTE prophylaxis DVT Px: Eliquis held: Surgery, melena, significant anemia SCDs for now CODE STATUS FULL CODE Thank you for this consultation. We will follow the patient with you during their hospital stay. You can reach a member of the [facility] Hospitalist Team 17/10 via hospitalist role on tiger text. Admission and Anticipated Discharge Date Admission Date: November 14, 2023 Subjective Patient is seen and examined at bedside States having brown stool today Hemoglobin stable today Patient offers no new complaints Still has left leg pain Back pain is controlled Denies any nausea, vomiting, abdominal pain, chest pain, dyspnea Review of Systems Review of Systems: All systems reviewed & are unremarkable except as noted in Subjective Physical Exam Physical Exam: Physical Exam: Vitals signs as noted above General Appearance:Moderately built and nourished, no apparent distress Head: normocephalic, Atraumatic Eyes: normal inspection, EOMI Neck: supple, Trachea midline Respiratory/Chest: Normal breath sounds, CTA, No accessory muscle use Cardiovascular: S1, S2, No murmur Abdomen/GI:Soft, Non tender, Bowel sounds present Back: Surgical site in dressing,+ drain Extremities/Musculoskeletal:normal inspection, no edema Neurologic/Psych:AAOX3, grossly no focal neurological deficits Skin: normal color, warm Results & Data Results & Data Vital Signs (Past 12 Hours) Vital Signs Temp Pulse Pulse Resp BP Pulse Ox O2 Del Method 11/20/23 14:42 36.9 C 78 18 97/59 L 94 Room Air 11/20/23 12:39 36.6 C 96 H 17 108/68 11/20/23 08:01 36.4 C L 85 19 142/78 H 98 Room Air 11/20/23 08:00 Room Air Laboratory Results Short CBC 11/19/23 11/20/23 11/20/23 Range/Units 21:25 06:34 13:17 WBC 5.10 (4.8-10.8) K/ul Hgb 7.5 L 7.1 L 8.1 L (14.0-18.0) g/dl Hct 23.4 L 21.9 L 25.0 L (42.0-52.0) % Plt Count 146 (130-400) K/uL BMP 11/20/23 06:34 Sodium 140 Potassium 3.5 Chloride 108 H Carbon Dioxide 30 BUN 19 Creatinine 0.83 Glucose 96 Calcium 7.3 L
[2023-11-20] MEDS: LACTATED RINGER'S 1,000 ML IV ONE (23:28)
[2023-11-21] LABS: BUN Creatinine Ratio 20.5 (10-20); Calcium 7.1 mg/dl (8.6-10.3); Est GFR (African American) 99.5 ml/min; Est GFR (Non-African American) 85.9 ml/min; Potassium 3.7 mmol/L (3.5-5.1)
[2023-11-21 07:50] LABS: Hematocrit (blood only) 20.2 % (42.0-52.0); Hemoglobin 6.6 g/dl (14.0-18.0); Mean Corpuscular Hgb Conc 32.7 g/dL (32.0-36.0); Mean Corpuscular Volume 91.8 fL (80.0-100.0); Platelet Count 144 K/uL (130-400); RDW Coefficient of Variation 16.3 % (11.5-14.5); RDW Standard Deviation 53.6 fL (36.4-46.3); White Blood Count 5.16 K/ul (4.8-10.8)
[2023-11-21 07:52] LABS: BUN Creatinine Ratio 19.7 (10-20); Calcium 7.2 mg/dl (8.6-10.3); Creatinine Clr Calc Pharmacy 72.5 ml/min; Est GFR (African American) 103.4 ml/min; Est GFR (Non-African American) 89.2 ml/min; Potassium 3.7 mmol/L (3.5-5.1)
[2023-11-21] MEDS ORDERED: SODIUM CHLORIDE 0.9% 250 ML IV PRN (07:53)
--- NOTE | 2023-11-21 10:09 | Orthopedic Progress Note ---
Date of Service November 21, 2023 Assessment & Plan (1) Spinal stenosis, thoracolumbar region: Plan: At this time we will continue to encourage therapy as tolerated. He is requested to visit from his oncologist. I will arrange this. There is a concern that the anemia is from another source than GI. Admission and Anticipated Discharge Date Admission Date: November 14, 2023 Subjective Patient's back pain is controlled. Still struggling with left greater than right thigh pain with certain activity. He is comfortable at rest and has r easonable strength however certain positions medically standing walking can produce severe pain. Physical Exam Physical Exam: On exam is in the chair at the bedside. He has good strength testing and negative logroll to bilateral extremities. Sensory is intact. Results & Data Vital Signs (Past 12 Hours) Vital Signs Temp Pulse Resp BP Pulse Ox O2 Del Method 11/21/23 07:44 36.8 C 94 H 18 122/64 95 Room Air 11/21/23 05:46 104/82 11/20/23 22:46 36.8 C 84 18 95/52 L 94 Room Air 11/20/23 22:42 Room Air
[2023-11-21] MEDS ORDERED: LORazepam 2 MG/1 ML VIAL IV PRN (12:55)
--- NOTE | 2023-11-21 15:06 | Gastroenterology Progress Note ---
Date of Service November 21, 2023 Assessment & Plan (1) Complaint of melena: Plan: With overnight drop in hemoglobin but having brown stools I would pursue another avenue for anemia. perhaps the MM and its treatment are playing a role. I agree with him that having a colonoscopy is a good idea and to wait as long as it doesn't become emergent. I also think he should have an EGD at the same time. I did tell him that if his stools turned dark again we should consider doing EGD earlier Admission and Anticipated Discharge Date Admission Date: November 14, 2023 Subjective hemoglobin fell to 6.6 this morning, patient just had a bowel movement before my visit that was brown. Tells me now that he wants to have a colonoscopy but wants to wait until he is stronger Physical Exam Physical Exam: He looks well Results & Data Vital Signs (Past 12 Hours) Vital Signs Temp Pulse Resp BP Pulse Ox O2 Del Method 11/21/23 14:37 36.5 C 96 H 18 142/62 H 94 Room Air 11/21/23 07:44 36.8 C 94 H 18 122/64 95 Room Air 11/21/23 05:46 104/82
--- NOTE | 2023-11-21 16:43 | Oncology Consultation ---
Date of Consultation November 21, 2023 Assessment & Plan (1) Multiple myeloma: While he is recuperating we will hold myeloma therapy. Once he is discharged then will initiate myeloma therapy discussed with the patient. (2) Anemia: Most likely related to underlying malignancy, myelosuppression due to his chemotherapy treatment as well as perioperative state. Transfuse as long as the hemoglobin is less than 7 g/dL to maintain hemoglobin greater than 7. Plan Hematology will continue to follow the patient make appropriate recommendations. Thank you for this interesting urological consult. History of Present Illness Reason for Consultation: Multiple myeloma Attending Physician: Anival Deshpande DO History of Present Illness Multiple myeloma Diagnosis: Multiple myeloma Date of diagnosis: 08/19/2022 Bone marrow: Plasma cell myeloma, 70 to 80% monotypic plasma cell Baseline lab WBC: 15.15 Hemoglobin 9.2 g/dL Hematocrit 28.8% Platelet count 364,000/mcL Myeloma FISH: 13 q. deletion/monosomy 13 M protein: IgG kappa monoclonal immunoglobulin CT abdomen pelvis with contrast, 08/11/2022: Numerous cortical irregularities involving the pelvis and ribs concerning for osseous metastatic disease. Left intertrochanteric fracture of the femoral neck. Acute on chronic appearing compression deformity of T12 and T3 vertebrae. CT chest, 08/11/2022 compression deformity of T3, T12 vertebrae MRI pelvis with and without contrast, 10/03/2022: Stable small enhancing masses in the left pelvis, s/p open reduction internal fixation of left proximal femur, degenerative changes of the lumbar spine PET CT scan, 10/05/2022: Nonspecific diffuse metabolic uptake throughout the skeletal bone marrow. Multiple nonacute incidental findings. R-ISS stage: Standard risk myeloma Treatment: CyBorD, cycle 1 on 08/25/2022 Daratumumab lenalidomide dexamethasone, starting 09/22/2022 x 5 cycles in [facility] January 2023; [facility] [place] Cycle 6 daratumumab lenalidomide dexamethasone Current regimen: Maintenance daratumumab; starting 04/06/2023 Weekly dexamethasone, 20 mg Lenalidomide, 10 mg 3 weeks on 1 week off the patient is a very pleasant 78-year-old gentleman who is very well-known to me has a history of multiple myeloma who had a spine MRI on 10/17/2023 for severe intractable back pain which revealed T12 burst fracture with 6 mm retropulsion. He was evaluated by our spine surgery colleagues He underwent decompression fusion T12-L1 1. medical oncology's been consulted as the patient has myeloma and is currently admitted.. Allergies Allergy/AdvReac Type Severity Reaction Status Date / Time No Known Allergies Allergy Verified 11/14/23 08:19 Home Medications Medication Instructions Recorded Confirmed Type acyclovir 200 mg capsule 400 mg PO BID 11/03/23 11/14/23 History apixaban 5 mg tablet 2.5 mg PO BID 11/03/23 11/14/23 History calcium carbonate 500 mg PO BID 11/03/23 11/14/23 History cholecalciferol (vitamin D3) 50 50 mcg PO BID 11/03/23 11/14/23 History mcg (2,000 unit) tablet (Vitamin D3) dexamethasone 4 mg tablet 4 mg PO DIRECTED 11/03/23 11/14/23 History famotidine 20 mg tablet (Pepcid) 20 mg PO DAILY PRN Acid Reflux 11/03/23 11/14/23 History hydrochlorothiazide 25 mg tablet 25 mg PO QAM 11/03/23 11/14/23 History lenalidomide 10 mg capsule 10 mg PO DIRECTED 11/03/23 11/14/23 History (Revlimid) lisinopril 20 mg tablet 20 mg PO QAM 11/03/23 11/14/23 History tramadol 50 mg tablet 50 mg PO Q6H PRN pain, moderate 11/19/23 Rx #30 tabs gabapentin 300 mg capsule 300 mg PO TID #90 caps 11/22/23 Rx Patient History Medical History Poor historian Acid reflux Occasional Osteoarthritis On anticoagulant therapy Pharmacy note indication: "VTE prophylaxis while on Revlimid" No personal hx of DVT/PE History of COVID-19 01/2023 HTN (hypertension) Multiple myeloma Dx 07/2022 Surgical History History of surgery on lower extremity Left femur titanium danette Hx of hernia repair History of arthroscopy left knee History of tooth extraction History of hip surgery left Social History Smoking Status: Former smoker Smoking End Date: 10+ years ago; Second Hand Exposure: No; Do You Dip or Chew Tobacco: No; Tobacco Cessation Education Requested by Patient: No Hx Alcohol Use: No Hx Substance Use: No Preferred Language: Slovenian Communication Ability: Effective Vp Respiratory Required: No Beliefs That Will Affect Care: None Current Living Situation: Alone Other Information That Helps Us Care for You: No Feels Safe at Home: Yes Safety Concerns: Feels Safe At This Time Assistive Devices: Walker Review of Systems Review of Systems: All systems reviewed & are unremarkable except as noted in HPI & below Constitutional: as per Subjective / HPI Eyes: as per Subjective / HPI Ear, Nose, Mouth, Throat: as per Subjective / HPI Respiratory: as per Subjective / HPI Cardiovascular: as per Subjective / HPI Gastrointestinal: as per Subjective / HPI Genitourinary: + as per Subjective / HPI Musculoskeletal: as per Subjective / HPI Integumentary: as per Subjective / HPI Neurologic: as per Subjective / HPI Psychiatric: as per Subjective / HPI Endocrine: as per Subjective / HPI Hematologic / Lymphatic: as per Subjective / HPI Physical Exam Constitutional: WD/WN, vitals as above Eyes: PERRL, conjunctivae normal, anicteric sclerae ENMT: external ear and nose normal, oropharynx normal Neck: trachea midline, no thyromegaly Respiratory: normal respiratory effort, lungs clear to auscultation Cardiovascular: RRR, no murmur, no edema Gastrointestinal (Abdomen): normal bowel sounds, soft, nontender, no hepatosplenomegaly Musculoskeletal: no cyanosis or clubbing, extremities motor strength 5/5 Skin: no rashes, warm and dry Neurologic: patellar DTR's 2+ bilat, sensation intact Psychiatric: A+Ox3, euthymic affect Results & Data Vital Signs (Past 12 Hours) Vital Signs Temp Pulse Resp BP Pulse Ox O2 Del Method 11/21/23 14:37 36.5 C 96 H 18 142/62 H 94 Room Air 11/21/23 07:44 36.8 C 94 H 18 122/64 95 Room Air 11/21/23 05:46 104/82
--- NOTE | 2023-11-21 17:42 | Hospitalist Progress Note ---
Date of Service November 21, 2023 Assessment & Plan (1) T12 compression fracture: (2) Pathologic fracture: (3) Spinal stenosis, thoracolumbar region: (4) Multiple myeloma: (5) HTN (hypertension): Plan This is a 78-year-old male who has significant past medical history of multiple myeloma currently on Revlimid therapy following [facility], HTN, GERD who presented for elective kyphoplasty and lumbar decompression surgery by Dr. Deshpande. T 12 pathologic burst fracture in setting of multiple myeloma with severe central canal stenosis S/P status post T12 kyphoplasty and T12-L1 decompression on 11/14/23 by Evacuation of hematoma and revision decompression T8 [address] Deshpande on 11/14/2023 Postoperative acute blood loss anemia Activity as per primary team Continue wound care Pain control, DVT prophylaxis per orthopedics Continue bowel regimen to prevent constipation Leukocytosis resolved Monitor CBC closely Continue PT OT S/P 2 unit PRBC Monitor H&H Hb 6.6 today Plan to discharge to rehab facility as able Will transfuse 1 unit PRBC today Melena H/O hemorrhoids per patient S/P PRBCs as above Monitor H&H and transfuse as needed Continue IV Protonix Liquid diet for today Appreciate GI input Advance diet as tolerated Hb 6.6 today May need EGD, colonoscopy Acute on chronic anemia Multifactorial: Postoperative acute blood loss anemia, hemodilutional, GI bleed, multiple myeloma Monitor CBC closely Transfuse PRBCs as needed Consulted hematology given persistent anemia, multiple myeloma ordered anemia workup Hypertension Bp variable Hold lisinopril, HCTZ for now Monitor BP closely SIRS No obvious source of infection Normal Lactate levels Nasal MRSA negative Blood culture: Negative to date Empirically received Zosyn--discontinued Leukocytosis resolved Hypomagnesemia Replete electrolytes as needed Monitor Multiple myeloma: Currently undergoing Revlimid therapy, 21-day cycle/7 days off, patient brought in his own supply Follows [facility], on apixaban for VTE prophylaxis DVT Px: Eliquis held: Surgery, melena, significant anemia SCDs for now CODE STATUS FULL CODE Thank you for this consultation. We will follow the patient with you during their hospital stay. You can reach a member of the [facility] Hospitalist Team 17/10 via hospitalist role on tiger text. Admission and Anticipated Discharge Date Admission Date: November 14, 2023 Subjective Patient is seen and examined at bedside Reports having no bowel movement, melena today Discussed with patient's son at bedside Hemoglobin dropped to 6.6 today Back pain is better controlled today Denies any nausea, vomiting, abdominal pain, chest pain, dyspnea Review of Systems Review of Systems: All systems reviewed & are unremarkable except as noted in Subjective Physical Exam Physical Exam: Physical Exam: Vitals signs as noted above General Appearance:Moderately built and nourished, no apparent distress Head: normocephalic, Atraumatic Eyes: normal inspection, EOMI Neck: supple, Trachea midline Respiratory/Chest: Normal breath sounds, CTA, No accessory muscle use Cardiovascular: S1, S2, No murmur Abdomen/GI:Soft, Non tender, Bowel sounds present Back: Surgical site in dressing,+ drain Extremities/Musculoskeletal:normal inspection, no edema Neurologic/Psych:AAOX3, grossly no focal neurological deficits Skin: normal color, warm Results & Data Results & Data Vital Signs (Past 12 Hours) Vital Signs Temp Pulse Resp BP Pulse Ox O2 Del Method 11/21/23 17:37 36.6 C 89 15 103/56 L 93 Room Air 11/21/23 14:37 36.5 C 96 H 18 142/62 H 94 Room Air 11/21/23 07:44 36.8 C 94 H 18 122/64 95 Room Air 11/21/23 05:46 104/82 Laboratory Results Short CBC 11/21/23 Range/Units 06:31 WBC 5.16 (4.8-10.8) K/ul Hgb 6.6 L* (14.0-18.0) g/dl Hct 20.2 L* (42.0-52.0) % Plt Count 144 (130-400) K/uL BMP 11/20/23 11/21/23 23:27 06:31 Sodium 136 137 Potassium 3.7 3.7 Chloride 105 106 Carbon Dioxide 27 29 BUN 16 14 Creatinine 0.78 0.71 Glucose 102 H 99 Calcium 7.1 L 7.2 L
[2023-11-21 23:24] LABS: Hematocrit (blood only) 24.1 % (42.0-52.0); Hemoglobin 7.7 g/dl (14.0-18.0)
[2023-11-22 00:02] LABS: Folate (Folic Acid),Ser orPlas 8.74 ng/ml (>5.38)
[2023-11-22 00:17] LABS: Iron 13 mcg/dl (35-175); Transferrin 164 mg/dl (200-360)
[2023-11-22 06:40] LABS: Hematocrit (blood only) 23.3 % (42.0-52.0); Hemoglobin 7.6 g/dl (14.0-18.0); Mean Corpuscular Hemoglobin 29.8 pg (25.0-34.0); Mean Corpuscular Hgb Conc 32.6 g/dL (32.0-36.0); Mean Corpuscular Volume 91.4 fL (80.0-100.0); Mean Platelet Volume 12.4 fL (9.4-12.4); Platelet Count 161 K/uL (130-400); RDW Coefficient of Variation 16.2 % (11.5-14.5); RDW Standard Deviation 54.2 fL (36.4-46.3); Red Blood Count 2.55 M/uL (4.70-6.10); White Blood Count 4.73 K/ul (4.8-10.8)
[2023-11-22 06:43] LABS: BUN Creatinine Ratio 17.9 (10-20); Creatinine Clr Calc Pharmacy 61.3 ml/min; Est GFR (African American) 96.5 ml/min; Est GFR (Non-African American) 83.3 ml/min; Potassium 3.7 mmol/L (3.5-5.1)
[2023-11-22 07:02] LABS: Ferritin 39.1 ng/ml (8-388)
--- NOTE | 2023-11-22 09:59 | Orthopedic Progress Note ---
Date of Service November 22, 2023 Assessment & Plan (1) Spinal stenosis, thoracolumbar region: Plan: At this time we will continue physical therapy and await placement. He is going to follow-up with his hip surgeon at [place] in the near future. Admission and Anticipated Discharge Date Admission Date: November 14, 2023 Subjective Pain controlled but still limiting at times. He is tolerating physical therapy. Physical Exam Physical Exam: Patient is in the chair at the bedside. He has good strength testing. Is comfortable at this time. Results & Data Vital Signs (Past 12 Hours) Vital Signs Temp Pulse Resp BP Pulse Ox O2 Del Method 11/22/23 07:53 36.7 C 85 16 118/74 96 Room Air 11/21/23 22:35 Room Air
--- NOTE | 2023-11-22 12:24 | Hospitalist Progress Note ---
Date of Service November 22, 2023 Assessment & Plan (1) T12 compression fracture: (2) Pathologic fracture: (3) Spinal stenosis, thoracolumbar region: (4) Multiple myeloma: (5) HTN (hypertension): Plan 78-year-old male who has significant past medical history of multiple myeloma currently on Revlimid therapy following [facility], HTN, GERD who presented for elective kyphoplasty and lumbar decompression surgery by Dr. Deshpande. T 12 pathologic burst fracture in setting of multiple myeloma with severe central canal stenosis S/P status post T12 kyphoplasty and T12-L1 decompression on 11/14/23 by Evacuation of hematoma and revision decompression T8 [address] Deshpande on 11/14/2023 Postoperative acute blood loss anemia Activity as per primary team Continue wound care Pain control, DVT prophylaxis per orthopedics Continue bowel regimen to prevent constipation Continue PT OT S/P 3 unit PRBC Hb is 7.6 today Continue to monitor Hb GI eval noted If hematochezia/melena recur, GI may have to scope earlier Will f/u Heme recs Melena Acute on chronic anemia Multifactorial: Postoperative acute blood loss anemia, hemodilutional, GI bleed, multiple myeloma H/O hemorrhoids per patient S/P PRBCs as above Continue IV Protonix On liquid diet Advance diet as tolerated Will f/u hematology given anemia, multiple myeloma Hypertension Bp variable Continue to hld lisinopril, HCTZ for now Monitor BP closely SIRS No obvious source of infection Normal Lactate levels Nasal MRSA negative Blood culture: Negative to date Empirically received Zosyn had been discontinued Leukocytosis resolved Hypomagnesemia Replete electrolytes as needed Monitor Multiple myeloma: Currently undergoing Revlimid therapy, 21-day cycle/7 days off, patient brought in his own supply Follows [facility], on apixaban for VTE prophylaxis DVT Px: Eliquis held: Surgery, melena, significant anemia SCDs for now CODE STATUS FULL CODE I spent a total of 40 minutes coordinating, documenting and providing care for this patient excluding time spent in performance of separately billed services Admission and Anticipated Discharge Date Admission Date: November 14, 2023 Subjective Patient seen and examined Reports surgical site pain is well controlled Reports occasional tightness/pain in thighs and left hip, none at this time Reports stool is brownish today Denied chest pain,cough, SOB, hemoptysis, hematemesis Physical Exam Constitutional: + well hydrated; no acute distress Eyes: PERRL, conjunctivae normal, anicteric sclerae ENMT: external ear and nose normal, oropharynx normal Respiratory: normal respiratory effort, lungs clear to auscultation Cardiovascular: Rate/Rhythm: regular rate and regular rhythm Gastrointestinal (Abdomen): normal bowel sounds, soft, nontender, no hepatosplenomegaly Musculoskeletal: No pedal edema Neurologic: PERRL, EOMI, accommodation nl, no face palsy, no dysarthria Psychiatric: A+Ox3, euthymic affect Results & Data Results & Data Vital Signs (Past 12 Hours) Vital Signs Temp Pulse Resp BP Pulse Ox O2 Del Method 11/22/23 07:53 36.7 C 85 16 118/74 96 Room Air Laboratory Results Abnormal lab results 11/21/23 11/21/23 11/22/23 Range/Units 08:04 22:57 05:59 WBC 4.73 L (4.8-10.8) K/ul RBC 2.55 L (4.70-6.10) M/uL Hgb 7.7 L 7.6 L (14.0-18.0) g/dl Hct 24.1 L 23.3 L (42.0-52.0) % RDW Std Deviation 54.2 H (36.4-46.3) fL RDW Coeff of Rohini 16.2 H (11.5-14.5) % Sodium 135 L (136-145) mmol/L Glucose 104 H (70-99(Fasting)) mg/dl Calcium 7.0 L (8.6-10.3) mg/dl Iron 13 L (35-175) mcg/dl Transferrin 164 L (200-360) mg/dl Antibody Screen POSITIVE A Crossmatch See Detail
[2023-11-22] MEDS: ALBUT/IPRATROP 3MG/0.5MG NEB 3 ML VIAL ONE (23:10)
[2023-11-23] MEDS: ALBUT/IPRATROP 3MG/0.5MG NEB 3 ML VIAL NEB PRN (02:53)
[2023-11-23 08:22] LABS: Hemoglobin 7.7 g/dl (14.0-18.0); Mean Corpuscular Hemoglobin 29.4 pg (25.0-34.0); Mean Corpuscular Hgb Conc 32.1 g/dL (32.0-36.0); Mean Corpuscular Volume 91.6 fL (80.0-100.0); Platelet Count 204 K/uL (130-400); RDW Coefficient of Variation 15.9 % (11.5-14.5); RDW Standard Deviation 51.8 fL (36.4-46.3); Red Blood Count 2.62 M/uL (4.70-6.10); White Blood Count 6.47 K/ul (4.8-10.8)
[2023-11-23 08:43] LABS: BUN Creatinine Ratio 18.3 (10-20); Creatinine Clr Calc Pharmacy 40.8 ml/min; Est GFR (African American) 62.5 ml/min; Est GFR (Non-African American) 53.9 ml/min; Potassium 3.9 mmol/L (3.5-5.1)
--- NOTE | 2023-11-23 11:09 | Communication Note ---
Date of Service: November 23, 2023 Oncology note noted. No GI workup at this time. Will sign off. Please call if services needed again
[2023-11-23] MEDS: guaiFENesin 600 MG TABCR PO SCH (12:08)
[2023-11-23 14:34] LABS: Appearance Urine Clear (Clear); Bilirubin Urine Negative (Negative); Blood Urine Negative (Negative); Color Urine Yellow; Glucose Urine UA Negative (Negative); Ketones Urine Negative (Negative); Leukocyte Esterase Urine Negative (Negative); Nitrite Urine Negative (Negative); Protein Urine Negative (Negative); Specific Gravity Urine 1.011 (1.000-1.030); Urobilinogen Urine Negative (Negative); pH Urine 5.5 (4.5-7.5)
--- NOTE | 2023-11-23 14:52 | Hospitalist Progress Note ---
Date of Service November 23, 2023 Assessment & Plan (1) T12 compression fracture: (2) Pathologic fracture: (3) Spinal stenosis, thoracolumbar region: (4) Multiple myeloma: (5) HTN (hypertension): Plan 78-year-old male who has significant past medical history of multiple myeloma currently on Revlimid therapy following [facility], HTN, GERD who presented for elective kyphoplasty and lumbar decompression surgery by Dr. Deshpande. T 12 pathologic burst fracture in setting of multiple myeloma with severe central canal stenosis S/P status post T12 kyphoplasty and T12-L1 decompression on 11/14/23 by Evacuation of hematoma and revision decompression T8 [address] Deshpande on 11/14/2023 Postoperative acute blood loss anemia Activity as per primary team Continue wound care Pain control, DVT prophylaxis per orthopedics Continue bowel regimen to prevent constipation Continue PT OT S/P 3 unit PRBC Hb is 7.7 today Hb remains stable GI eval noted Heme/onc recs noted. Melena Acute on chronic anemia Multifactorial: Postoperative acute blood loss anemia, hemodilutional, GI bleed, multiple myeloma H/O hemorrhoids per patient S/P PRBCs as above Continue IV Protonix Melena resolved Hypertension Bp variable Continue to hold lisinopril, HCTZ for now Monitor BP closely SIRS No obvious source of infection Normal Lactate levels Nasal MRSA negative Blood culture: Negative to date Empirically received Zosyn had been discontinued Leukocytosis resolved Multiple myeloma: Currently undergoing Revlimid therapy, 21-day cycle/7 days off, patient brought in his own supply Follows [facility], on apixaban for VTE prophylaxis DVT Px: Eliquis held: Surgery, melena, significant anemia SCDs for now CODE STATUS FULL CODE Updated son at bedside UA does not suggest UTI Continue neb prn. Get XR chest I spent a total of 40 minutes coordinating, documenting and providing care for this patient excluding time spent in performance of separately billed services Admission and Anticipated Discharge Date Admission Date: November 14, 2023 Subjective Patient seen and examined Reports urge incontinence last night and this AM Denied dysuria, hematuria, freq Denied fever, chills, nausea Reports some wheezing last night that resolved with nebs. Reports mild dry cough Denied chest pain/SOB Physical Exam Constitutional: + well hydrated; no acute distress Eyes: PERRL, conjunctivae normal, anicteric sclerae ENMT: external ear and nose normal, oropharynx normal Respiratory: Normal respiratory effort, few rhonchi Cardiovascular: Rate/Rhythm: regular rate and regular rhythm Gastrointestinal (Abdomen): normal bowel sounds, soft, nontender, no hepatosplenomegaly Musculoskeletal: No pedal edema Neurologic: PERRL, EOMI, accommodation nl, no face palsy, no dysarthria Psychiatric: A+Ox3, euthymic affect Results & Data Results & Data Vital Signs (Past 12 Hours) Vital Signs Temp Pulse Resp BP Pulse Ox O2 Del Method 11/23/23 06:32 36.6 C 95 H 18 136/57 L 97 Room Air 11/23/23 02:53 83 17 99 Room Air Laboratory Results Abnormal lab results 11/23/23 Range/Units 07:39 RBC 2.62 L (4.70-6.10) M/uL Hgb 7.7 L (14.0-18.0) g/dl Hct 24.0 L (42.0-52.0) % RDW Std Deviation 51.8 H (36.4-46.3) fL RDW Coeff of Rohini 15.9 H (11.5-14.5) % Glucose 119 H (70-99(Fasting)) mg/dl Calcium 7.0 L (8.6-10.3) mg/dl
--- NOTE | 2023-11-23 17:03 | XRay Report ---
SINGLE VIEW CHEST CLINICAL HISTORY: Wheezing FINDINGS: An AP, portable, upright chest radiograph is compared to study dated 11/08/2023. The examina tion is degraded by portable technique and patient rotation. The heart is enlarged noting atheroscle rotic calcification of the thoracic aorta. The pulmonary vasculature is noncongested. Chronic interst itial thickening is similar to previous. There is a layering right pleural effusion with right basila r consolidation. Atelectasis is noted at the left lung base. No pneumothorax is seen. The skeletal st ructures are osteopenic. The bony thorax is grossly intact. IMPRESSION: 1. Cardiomegaly without radiographic evidence of congestive failure. 2. Layering right pleural effusion with right basilar consolidation. ACT 112: Negative or not required by law. Electronically signed by: Armand Ceja M.D. 11/23/2023 5:02 PM
[2023-11-24] MEDS: AMOXICILLIN/CLAVULANATE 875 MG TAB PO SCH (09:33)
[2023-11-24] MEDS: DOXYCYCLINE HYCLATE 100 MG CAP PO SCH (09:33)
--- NOTE | 2023-11-24 11:36 | Hospitalist Progress Note ---
Date of Service November 24, 2023 Assessment & Plan (1) T12 compression fracture: (2) Pathologic fracture: (3) Spinal stenosis, thoracolumbar region: (4) Multiple myeloma: (5) HTN (hypertension): Plan 78-year-old male who has significant past medical history of multiple myeloma currently on Revlimid therapy following [facility], HTN, GERD who presented for elective kyphoplasty and lumbar decompression surgery by Dr. Deshpande. T 12 pathologic burst fracture in setting of multiple myeloma with severe central canal stenosis S/P status post T12 kyphoplasty and T12-L1 decompression on 11/14/23 by Evacuation of hematoma and revision decompression T8 [address] Deshpande on 11/14/2023 Postoperative acute blood loss anemia Activity as per primary team Continue wound care Pain control, DVT prophylaxis per orthopedics Continue bowel regimen to prevent constipation Continue PT OT S/P 3 unit PRBC Hb remains stable GI eval noted Heme/onc recs noted. Melena Acute on chronic anemia Multifactorial: Postoperative acute blood loss anemia, hemodilutional, GI bleed, multiple myeloma H/O hemorrhoids per patient S/P PRBCs as above Continue IV Protonix Melena resolved Hypertension Bp variable Continue to hold lisinopril, HCTZ for now BP has been normal. If BP trend continues the way it is, consider holding off lisinopril even on discharge Pneumonia CXR on 11/24/23 showed right basilar consolidation with pleural effusion On room air Started on Augmentin and doxycycline Multiple myeloma: Currently undergoing Revlimid therapy, 21-day cycle/7 days off, patient brought in his own supply Follows [facility], on apixaban for VTE prophylaxis DVT Px: Eliquis held: Surgery, melena, significant anemia SCDs for now CODE STATUS FULL CODE I spent a total of 45 minutes coordinating, documenting and providing care for this patient excluding time spent in performance of separately billed services Admission and Anticipated Discharge Date Admission Date: November 14, 2023 Subjective Patient seen and examined Reports cough is improved Denied any SOB/wheezing today Denied chest pain, nausea, vomiting, abd pain, diarrhea Reports urge incontinence is improved Denied dysuria, hematuria Physical Exam Constitutional: + well hydrated; no acute distress Eyes: PERRL, conjunctivae normal, anicteric sclerae ENMT: external ear and nose normal, oropharynx normal Respiratory: normal respiratory effort, lungs clear to auscultation Cardiovascular: Rate/Rhythm: regular rate and regular rhythm Gastrointestinal (Abdomen): normal bowel sounds, soft, nontender, no hepatosplenomegaly Musculoskeletal: No pedal edema Neurologic: PERRL, EOMI, accommodation nl, no face palsy, no dysarthria Psychiatric: A+Ox3, euthymic affect Results & Data Results & Data Vital Signs (Past 12 Hours) Vital Signs Temp Pulse Resp BP Pulse Ox O2 Del Method 11/24/23 08:30 Room Air 11/24/23 07:54 36.6 C 84 16 116/68 96 Room Air Laboratory Results Abnormal lab results 11/21/23 Range/Units 08:04 Crossmatch See Detail
[2023-11-25 06:19] LABS: Hematocrit (blood only) 23.7 % (42.0-52.0); Hemoglobin 7.7 g/dl (14.0-18.0); Mean Corpuscular Hemoglobin 29.6 pg (25.0-34.0); Mean Corpuscular Hgb Conc 32.5 g/dL (32.0-36.0); Mean Corpuscular Volume 91.2 fL (80.0-100.0); Mean Platelet Volume 11.9 fL (9.4-12.4); Platelet Count 294 K/uL (130-400); RDW Coefficient of Variation 15.6 % (11.5-14.5); RDW Standard Deviation 51.8 fL (36.4-46.3); White Blood Count 13.27 K/ul (4.8-10.8)
[2023-11-25 06:29] LABS: BUN Creatinine Ratio 21.9 (10-20); Calcium 6.9 mg/dl (8.6-10.3); Creatinine Clr Calc Pharmacy 27.5 ml/min; Est GFR (African American) 38.8 ml/min; Est GFR (Non-African American) 33.4 ml/min; Potassium 4.5 mmol/L (3.5-5.1)
--- NOTE | 2023-11-25 08:48 | Orthopedic Progress Note ---
Date of Service November 25, 2023 Assessment & Plan (1) Spinal stenosis, thoracolumbar region: Plan: This point we will continue physical therapy. Plan for rehab discharge this weekend. Admission and Anticipated Discharge Date Admission Date: November 14, 2023 Subjective Back pain is controlled leg symptoms improving. Was tolerating physical therapy. Physical Exam Physical Exam: Patient is in chair bedside. [. Testing. Results & Data Vital Signs (Past 12 Hours) Vital Signs Temp Pulse Resp BP Pulse Ox O2 Del Method 11/25/23 08:01 36.7 C 95 H 16 141/64 H 93 Room Air 11/24/23 21:30 Room Air
--- NOTE | 2023-11-25 10:49 | Hospitalist Progress Note ---
Date of Service November 25, 2023 Assessment & Plan (1) T12 compression fracture: (2) Pathologic fracture: (3) Spinal stenosis, thoracolumbar region: (4) Multiple myeloma: (5) HTN (hypertension): Plan 78-year-old male who has significant past medical history of multiple myeloma currently on Revlimid therapy following [facility], HTN, GERD who presented for elective kyphoplasty and lumbar decompression surgery by Dr. Deshpande. T 12 pathologic burst fracture in setting of multiple myeloma with severe central canal stenosis S/P status post T12 kyphoplasty and T12-L1 decompression on 11/14/23 by Evacuation of hematoma and revision decompression T8 [address] Deshpande on 11/14/2023 Postoperative acute blood loss anemia Activity as per primary team Continue wound care Pain control, DVT prophylaxis per orthopedics Continue bowel regimen to prevent constipation Continue PT OT S/P 3 unit PRBC Hb remains stable GI eval noted Heme/onc recs noted. Melena Acute on chronic anemia Multifactorial: Postoperative acute blood loss anemia, hemodilutional, GI bleed, multiple myeloma H/O hemorrhoids per patient S/P PRBCs as above Continue IV Protonix Melena resolved Hypertension Bp variable Continue to hold lisinopril, HCTZ for now BP has been normal. If BP trend continues the way it is, consider holding off lisinopril even on discharge Acute kidney injury Patient's cr is 1.87 today Will give IVF NSS 1L Renally dose meds. Reduce augmentin to 500mg BID. Reduce gabapentin to 300mg BID. Hold revlimid for now Kidney/Bladder USS Monitor renal function Continue to hold HCTZ, lisinopril Pneumonia CXR on 11/24/23 showed right basilar consolidation with pleural effusion On room air On Augmentin and doxycycline Multiple myeloma: Currently undergoing Revlimid therapy, 21-day cycle/7 days off, patient brought in his own supply Follows [facility], on apixaban for VTE prophylaxis DVT Px: Eliquis held: Surgery, melena, significant anemia SCDs for now CODE STATUS FULL CODE I spent a total of 50 minutes coordinating, documenting and providing care for this patient excluding time spent in performance of separately billed services Admission and Anticipated Discharge Date Admission Date: November 14, 2023 Subjective Patient seen and examined Reports cough is minimal today Denied any SOB/wheezing Denied chest pain, nausea, vomiting, abd pain, diarrhea Denied any urinary problems today Physical Exam Constitutional: + well hydrated; no acute distress Eyes: PERRL, conjunctivae normal, anicteric sclerae ENMT: external ear and nose normal, oropharynx normal Respiratory: normal respiratory effort, lungs clear to auscultation Cardiovascular: Rate/Rhythm: regular rate and regular rhythm Gastrointestinal (Abdomen): normal bowel sounds, soft, nontender, no hepatosplenomegaly Musculoskeletal: No pedal edema Neurologic: PERRL, EOMI, accommodation nl, no face palsy, no dysarthria Psychiatric: A+Ox3, euthymic affect Results & Data Results & Data Vital Signs (Past 12 Hours) Vital Signs Temp Pulse Resp BP Pulse Ox O2 Del Method 11/25/23 08:01 36.7 C 95 H 16 141/64 H 93 Room Air Laboratory Results Abnormal lab results 11/25/23 Range/Units 05:32 WBC 13.27 H (4.8-10.8) K/ul RBC 2.60 L (4.70-6.10) M/uL Hgb 7.7 L (14.0-18.0) g/dl Hct 23.7 L (42.0-52.0) % RDW Std Deviation 51.8 H (36.4-46.3) fL RDW Coeff of Rohini 15.6 H (11.5-14.5) % BUN 41 H (6-23) mg/dl Creatinine 1.87 H D (0.6-1.4) mg/dl BUN/Creatinine Ratio 21.9 H (10-20) Calcium 6.9 L (8.6-10.3) mg/dl
[2023-11-25] MEDS: SODIUM CHLORIDE 0.9% 1,000 ML IV SCH (10:55)
[2023-11-25] MEDS: MAGNESIUM HYDROXIDE SUSP 30 ML UDC PO PRN (11:05)
[2023-11-25] MEDS: AMOXICILLIN/CLAVULANATE 500 MG TAB PO SCH (17:46)
[2023-11-25] MEDS: GABAPENTIN 300 MG CAP PO SCH (20:27)
--- NOTE | 2023-11-26 00:20 | Ultrasound Report ---
Exam(s): US RENAL EXAM: US Retroperitoneal Limited, Renal CLINICAL HISTORY: Reason for exam: JUDY. TECHNIQUE: Real-time limited ultrasound of the retroperitoneum with image documentation. COMPARISON: No relevant prior studies available. FINDINGS: Study is markedly limited. Right kidney: The right kidney measured 10.9 x 5.9 x 4.7 cm. There is a 7 mm calcification within the right kidney. No solid mass. There is right hydronephrosis.. Left kidney: The left kidney measured 11.0 x 6.1 x 6.1 cm. No stones. No solid mass. There is left hydronephrosis. Urinary bladder: Within the visualized portions of the bladder, no masses or calculi are noted. No ureteral jets are seen. IMPRESSION: Limited exam. There is a 7 mm right renal calcification. There is bilateral hydronephrosis. Electronically signed by: Gilberto Platt MD 11/26/23 00:18 AM
[2023-11-26 06:40] LABS: Hematocrit (blood only) 21.5 % (42.0-52.0); Hemoglobin 6.8 g/dl (14.0-18.0); Mean Corpuscular Hemoglobin 29.6 pg (25.0-34.0); Mean Corpuscular Hgb Conc 31.6 g/dL (32.0-36.0); Mean Corpuscular Volume 93.5 fL (80.0-100.0); Mean Platelet Volume 11.6 fL (9.4-12.4); Platelet Count 265 K/uL (130-400); RDW Coefficient of Variation 15.9 % (11.5-14.5); RDW Standard Deviation 54.4 fL (36.4-46.3); White Blood Count 9.77 K/ul (4.8-10.8)
[2023-11-26 06:41] LABS: BUN Creatinine Ratio 20.4 (10-20); Calcium 6.4 mg/dl (8.6-10.3); Creatinine Clr Calc Pharmacy 25.6 ml/min; Est GFR (African American) 35.5 ml/min; Est GFR (Non-African American) 30.6 ml/min; Potassium 4.3 mmol/L (3.5-5.1)
[2023-11-26] MEDS ORDERED: SODIUM CHLORIDE 0.9% 250 ML IV PRN ×2 (06:50→07:31)
--- NOTE | 2023-11-26 08:51 | CT Scan Report ---
CT OF THE ABDOMEN AND PELVIS WITHOUT CONTRAST CLINICAL HISTORY: Bilateral hydronephrosis. Multiple myeloma. COMPARISON STUDY: Renal ultrasound November 25, 2023. Lumbar spine MRI October 17, 2023. TECHNIQUE: Axial images of the abdomen and pelvis were obtained without IV contrast. Images were revi ewed in the axial, sagittal, and coronal planes. Automated exposure control was utilized for the enedina dy. A dose lowering technique was utilized adhering to the principles of ALARA. FINDINGS: A small right pleural effusion is present. Subpleural opacity represents atelectasis. There is a moderate sized hiatal hernia with partially intrathoracic stomach. Anasarca is noted. Status po st T12 decompression with severe T12 compression fracture, as shown on MRI of October 17, 2023, with ass ociated retropulsion. No additional fractures are present. There are probable left-sided parapelvic c ysts. Tubular hypodense foci within the right collecting system could reflect parapelvic cysts or rig ht hydronephrosis. There are no ureteral calculi. The gallbladder is distended. Asymmetric right porsche nephric stranding is present. Gallstones within the gallbladder. The gallbladder is mildly distended. Unenhanced images of the liver, spleen, adrenal glands and pancreas are unremarkable. There is no ev idence for a bowel obstruction. Colonic diverticulosis without evidence for acute diverticulitis. The re is no abdominal or pelvic lymphadenopathy. There are no fluid collections. IMPRESSION: 1. Distended bladder. No urinary calculi. Left-sided parapelvic cysts. No left hydronephrosis. Probab le right parapelvic cysts although right hydronephrosis could appear similar given asymmetric right p erinephric stranding. 2. Anasarca. Small right pleural effusion. Subpleural right lower lobe opacity represents atelectasis . 3. Cholelithiasis. Mild gallbladder distention. 4. T12 fracture with retropulsion status post decompression. ACT 112: Negative or not required by law. Electronically signed by: Napoleon Cain M.D. 11/26/2023 8:48 AM
--- NOTE | 2023-11-26 09:26 | Urology Consultation ---
Date of Consultation November 26, 2023 Assessment & Plan (1) Urinary retention: (2) Bilateral hydronephrosis: (3) JUDY (acute kidney injury): Plan 78-year-old male who has been admitted since 11/14/2023 after undergoing a T12 decompression due to a compression fracture and severe spinal stenosis. He had severe perineal pain postoperatively and was taken back to the OR on the same day for an evacuation of hematoma and revision decompression. He has been hospitalized since that point. He has required blood transfusions. He does have a history of multiple myeloma. His creatinine was noted to rise from 0.84- 1.[address] up to 1.87 and then was 2.01 today. Renal ultrasound was performed which showed bilateral hydronephrosis. Urology was consulted. A CT scan of the abdomen and pelvis was recommended and this was independently reviewed. This showed a severely distended bladder with bilateral hydronephrosis there was no obvious obstruction of either ureter. Hope catheter was placed. Based on the CT scan, his JUDY was caused from significant bladder distention causing bilateral hydronephrosis. The management of this is a Hope catheter Suspect that he had this issue prior to surgery given his symptoms. Monitor for postobstructive diuresis given large output of 1.5 L after catheterization Maintain catheterization for a minimum of 7 days. Discussed that patient will likely need a void trial as an outpatient but also discussed that he may need a further workup if he is unable to pass a void trial. Recommend starting Flomax 0.4 mg daily Urology is sent a message for outpatient follow-up History of Present Illness Reason for Consultation: Bilateral hydronephrosis, JUDY Attending Physician: Anival Deshpande DO History of Present Illness 78-year-old male who has been admitted since 11/14/2023 after undergoing a T12 decompression due to a compression fracture and severe spinal stenosis. He had severe perineal pain postoperatively and was taken back to the OR on the same day for an evacuation of hematoma and revision decompression. He has been hospitalized since that point. He has required blood transfusions. He does have a history of multiple myeloma. His creatinine was noted to rise from 0.84- 1.[address] up to 1.87 and then was 2.01 today. Renal ultrasound was performed which showed bilateral hydronephrosis. Urology was consulted. A CT scan of the abdomen and pelvis was recommended and this was independently reviewed. This showed a severely distended bladder with bilateral hydronephrosis there was no obvious obstruction of either ureter. Hope catheter was placed. Patient did report prior to surgery that he would have to void shortly after initial urination and had nocturia 3 times per night so I suspect this is been an insidious process that was present far before surgery. 1.5 L of urine came out of the catheter after nursing placed it. Allergies Allergy/AdvReac Type Severity Reaction Status Date / Time No Known Allergies Allergy Verified 11/14/23 08:19 Home Medications Medication Instructions Recorded Confirmed Type acyclovir 200 mg capsule 400 mg PO BID 11/03/23 11/14/23 History apixaban 5 mg tablet 2.5 mg PO BID 11/03/23 11/14/23 History calcium carbonate 500 mg PO BID 11/03/23 11/14/23 History cholecalciferol (vitamin D3) 50 50 mcg PO BID 11/03/23 11/14/23 History mcg (2,000 unit) tablet (Vitamin D3) dexamethasone 4 mg tablet 4 mg PO DIRECTED 11/03/23 11/14/23 History famotidine 20 mg tablet (Pepcid) 20 mg PO DAILY PRN Acid Reflux 11/03/2311/13 History hydrochlorothiazide 25 mg tablet 25 mg PO QAM 11/03/23 11/14/23 History lenalidomide 10 mg capsule 10 mg PO DIRECTED 11/03/23 11/14/23 History (Revlimid) lisinopril 20 mg tablet 20 mg PO QAM 11/03/23 11/14/23 History tramadol 50 mg tablet 50 mg PO Q6H PRN pain, moderate 11/19/23 Rx #30 tabs gabapentin 300 mg capsule 300 mg PO TID #90 caps 11/22/23 Rx Patient History Medical History Poor historian Acid reflux Occasional Osteoarthritis On anticoagulant therapy Pharmacy note indication: "VTE prophylaxis while on Revlimid" No personal hx of DVT/PE History of COVID-19 01/2023 HTN (hypertension) Multiple myeloma Dx 07/2022 Surgical History History of surgery on lower extremity Left femur titanium danette Hx of hernia repair History of arthroscopy left knee History of tooth extraction History of hip surgery left Social History Smoking Status: Former smoker Smoking End Date: 10+ years ago; Second Hand Exposure: No; Do You Dip or Chew Tobacco: No; Tobacco Cessation Education Requested by Patient: No Hx Alcohol Use: No Hx Substance Use: No Preferred Language: British Communication Ability: Effective Semiautomatic Taper Operator Required: No Beliefs That Will Affect Care: None Current Living Situation: Alone Other Information That Helps Us Care for You: No Feels Safe at Home: Yes Safety Concerns: Feels Safe At This Time Assistive Devices: Walker Physical Exam Physical Exam: General: Alert and oriented, no acute distress HEENT: Normocephalic, mucous membranes moist Pulmonary: Nonlabored respirations Abdomen: Nondistended : Hope catheter draining clear yellow urine. Extremities: Moves all 4 spontaneously Neuro: No gross deficits Skin: Warm, dry, no rashes noted PG Care Time/CCT Total # of Minutes Spent Total Time Spent with Patient: Total time spent is greater than 50% in coordination of care (as documented) at patient's floor/unit and/or counseling patient: Coding Level of Care Code 16366 INT INP/OBS CARE 255MIN Diagnoses Urinary retention R33.9 Bilateral hydronephrosis N13.30 JUDY (acute kidney injury) N17.9
--- NOTE | 2023-11-26 11:27 | Hospitalist Progress Note ---
Date of Service November 26, 2023 Assessment & Plan (1) T12 compression fracture: (2) Pathologic fracture: (3) Spinal stenosis, thoracolumbar region: (4) Multiple myeloma: (5) HTN (hypertension): Plan 78-year-old male who has significant past medical history of multiple myeloma currently on Revlimid therapy [facility], HTN, GERD who presented for elective kyphoplasty and lumbar decompression surgery by Dr. Deshpande. T 12 pathologic burst fracture in setting of multiple myeloma with severe central canal stenosis S/P status post T12 kyphoplasty and T12-L1 decompression on 11/14/23 by Evacuation of hematoma and revision decompression T8 [address] Deshpande on 11/14/2023 Postoperative acute blood loss anemia Activity as per primary team Continue wound care Pain control, DVT prophylaxis per orthopedics Continue bowel regimen to prevent constipation Continue PT OT S/P 3 unit PRBC GI eval noted Heme/onc recs noted. Hb is 6.8 today Awaiting transfusion of 1 PRBC today Monitor Melena Acute on chronic anemia Multifactorial: Postoperative acute blood loss anemia, hemodilutional, GI bleed, multiple myeloma H/O hemorrhoids per patient S/P PRBCs as above Continue IV Protonix Melena resolved Hypertension Bp variable Continue to hold lisinopril, HCTZ for now BP has been normal. Based on BP trend this admission, will stop HCTZ, lisinopril on discharge Acute kidney injury Cr trending up. Up to 2.01 today Renal USS noted bilateral hydroneprosis Discussed with Urologist CT abd/P showed distended bladder, no urinary calculi,. Left parapelvic cysts. No left hydronephrosis. Probable right parapelvic cysts although right hydron ephrosis could appear similar. Anasarca, small right pleural effusion, subpleural RLL opacity Had urinary retention with large output of 1.5L after somers placement Start flomax 0.4mg Urology recommends maintaining somers for atleast 7 days and outpt follow up for voiding trial Discussed with [employer] Dr Fuchs today. Recommends continuing IVF for now Continue to renally dose meds. Revlimid on hold Pneumonia CXR on 11/24/23 showed right basilar consolidation with pleural effusion On room air On Augmentin and doxycycline Multiple myeloma: Currently undergoing Revlimid therapy, 21-day cycle/7 days off, patient brought in his own supply [facility], on apixaban for VTE prophylaxis DVT Px: Analeena held: Surgery, melena, significant anemia SCDs for now CODE STATUS FULL CODE Patient was initially planned for dc to rehab by Primary Surgery team. This was canceled due to above Discussed with Dr Deshpande. He transferred primary care of patient to hospital medicine team and will continue to follow peripherally I spent a total of 55 minutes coordinating, documenting and providing care for this patient excluding time spent in performance of separately billed services Admission and Anticipated Discharge Date Admission Date: November 14, 2023 Subjective Patient seen and examined Reports no cough today Denied any SOB/wheezing Denied chest pain, nausea, vomiting, abd pain, diarrhea Physical Exam Constitutional: + well hydrated; no acute distress Eyes: PERRL, conjunctivae normal, anicteric sclerae ENMT: external ear and nose normal, oropharynx normal Respiratory: normal respiratory effort, lungs clear to auscultation Cardiovascular: Rate/Rhythm: regular rate and regular rhythm Gastrointestinal (Abdomen): normal bowel sounds, soft, nontender, no hepatosplenomegaly Neurologic: PERRL, EOMI, accommodation nl, no face palsy, no dysarthria Psychiatric: A+Ox3, euthymic affect Genitourinary: Somers in situ Results & Data Results & Data Vital Signs (Past 12 Hours) Vital Signs Temp Pulse Resp BP Pulse Ox O2 Del Method 11/26/23 09:35 36.8 C 82 16 100/58 L 91 Room Air Laboratory Results Abnormal lab results 11/26/23 11/26/23 Range/Units 05:57 07:08 RBC 2.30 L (4.70-6.10) M/uL Hgb 6.8 L* (14.0-18.0) g/dl Hct 21.5 L (42.0-52.0) % MCHC 31.6 L (32.0-36.0) g/dL RDW Std Deviation 54.4 H (36.4-46.3) fL RDW Coeff of Rohini 15.9 H (11.5-14.5) % Chloride 108 H (98-107) mmol/L BUN 41 H (6-23) mg/dl Creatinine 2.01 H (0.6-1.4) mg/dl BUN/Creatinine Ratio 20.4 H (10-20) Glucose 102 H (70-99(Fasting)) mg/dl Calcium 6.4 L (8.6-10.3) mg/dl Antibody Screen POSITIVE A Crossmatch See Detail
[2023-11-26 11:40] LABS: Creatinine Urine Random 26.1 mg/dl; Protein Creatinine Ratio Urine 0.7 (0-0.2); Total Protein Urine Random 19.2 mg/dl (0-11.9)
--- NOTE | 2023-11-26 12:01 | Nephrology Consultation ---
Date of Consultation November 26, 2023 Assessment & Plan (1) JUDY (acute kidney injury): Acute kidney injury- secondary to obstructive uropathy/ there may be a prerenal element - he now has a Hope's which is draining clear urine, hopefully decompression will help improve his renal function. - continue on IV fluids for 1 more day - avoid any nephrotoxic or NSAIDs, use Dilaudid, Oxycodone . tramadol for pain relief -okay with holding hydrochlorothiazide, lisinopril - daily BMP - maintain map more than 65, blood transfusion to keep hemoglobin more than 7. Although unlikely myeloma kidney, will get a ACR and PCR (2) Bilateral hydronephrosis: (3) Spinal stenosis, thoracolumbar region: History of Present Illness Reason for Consultation: Acute kidney injury Attending Physician: Nneka Butler MD History of Present Illness 78-year-old male w/ PMH of multiple myeloma (on Revlimid therapy), HTN, GERD who presented for elective kyphoplasty and lumbar decompression surgery by Dr. Deshpande since 11/13.His renal functions have been normal until 11/21, with EGFR more than 60. This has been progressively getting worse over the last 3 days with a serum creatinine of 2.01 today.Renal ultrasound showed bilateral hydronephrosis, subsequent CT scan of abdomen pelvis without contrast showed severely distended bladder with bilateral hydronephrosis, Urology was consulted, Hope's placed and he made 1.5 L of urine post Hope's insertion. on review, he appeared comfortable with no shortness of breath ,no abdominal pain,no dysuric symptoms. Nephrology consulted for further management Allergies Allergy/AdvReac Type Severity Reaction Status Date / Time No Known Allergies Allergy Verified 11/14/23 08:19 Home Medications Medication Instructions Recorded Confirmed Type acyclovir 200 mg capsule 400 mg PO BID 11/03/23 11/14/23 History apixaban 5 mg tablet 2.5 mg PO BID 11/03/23 11/14/23 History calcium carbonate 500 mg PO BID 11/03/23 11/14/23 History cholecalciferol (vitamin D3) 50 50 mcg PO BID 11/03/23 11/14/23 History mcg (2,000 unit) tablet (Vitamin D3) dexamethasone 4 mg tablet 4 mg PO DIRECTED 11/03/23 11/14/23 History famotidine 20 mg tablet (Pepcid) 20 mg PO DAILY PRN Acid Reflux 11/03/23 11/14/23 History hydrochlorothiazide 25 mg tablet 25 mg PO QAM 11/03/23 11/14/23 History lenalidomide 10 mg capsule 10 mg PO DIRECTED 11/03/23 11/14/23 History (Revlimid) lisinopril 20 mg tablet 20 mg PO QAM 11/03/23 11/14/23 History tramadol 50 mg tablet 50 mg PO Q6H PRN pain, moderate 11/19/23 Rx #30 tabs gabapentin 300 mg capsule 300 mg PO TID #90 caps 11/22/23 Rx Patient History Medical History Poor historian Acid reflux Occasional Osteoarthritis On anticoagulant therapy Pharmacy note indication: "VTE prophylaxis while on Revlimid" No personal hx of DVT/PE History of COVID-19 01/2023 HTN (hypertension) Multiple myeloma Dx 07/2022 Surgical History History of surgery on lower extremity Left femur titanium danette Hx of hernia repair History of arthroscopy left knee History of tooth extraction History of hip surgery left Social History Smoking Status: Former smoker Smoking End Date: 10+ years ago; Second Hand Exposure: No; Do You Dip or Chew Tobacco: No; Tobacco Cessation Education Requested by Patient: No Hx Alcohol Use: No Hx Substance Use: No Preferred Language: Bangladeshi Communication Ability: Effective Slope Runner Required: No Beliefs That Will Affect Care: None Current Living Situation: Alone Other Information That Helps Us Care for You: No Feels Safe at Home: Yes Safety Concerns: Feels Safe At This Time Assistive Devices: Walker Review of Systems 2 Review of Systems: All systems reviewed & are unremarkable except as noted in HPI & below Physical Exam 2 Physical Exam: General: Alert and oriented, no acute distress HEENT: Normocephalic, mucous membranes moist Pulmonary: Nonlabored respirations Abdomen: Nondistended : Hope catheter draining clear yellow urine. Extremities: Moves all 4 spontaneously Neuro: No gross deficits Skin: Warm, dry, no rashes noted Results & Data Vital Signs (Past 12 Hours) Vital Signs Temp Pulse Resp BP Pulse Ox O2 Del Method 11/26/23 09:35 36.8 C 82 16 100/58 L 91 Room Air Laboratory Results 11/26/23 05:57 11/26/23 05:57
[2023-11-26] MEDS: ACETAMINOPHEN 325 MG TAB PO ONE (19:06)
[2023-11-26] MEDS: TAMSULOSIN HCL 0.4 MG CAP PO SCH (21:35)
[2023-11-26 22:42] LABS: Hematocrit (blood only) 24.1 % (42.0-52.0); Hemoglobin 7.8 g/dl (14.0-18.0)
[2023-11-27 06:43] LABS: Hematocrit (blood only) 22.9 % (42.0-52.0); Hemoglobin 7.3 g/dl (14.0-18.0); Mean Corpuscular Hemoglobin 29.3 pg (25.0-34.0); Mean Corpuscular Hgb Conc 31.9 g/dL (32.0-36.0); Mean Platelet Volume 11.5 fL (9.4-12.4); Platelet Count 266 K/uL (130-400); RDW Coefficient of Variation 16.2 % (11.5-14.5); RDW Standard Deviation 53.7 fL (36.4-46.3); Red Blood Count 2.49 M/uL (4.70-6.10); White Blood Count 6.66 K/ul (4.8-10.8)
[2023-11-27 06:52] LABS: Calcium 6.2 mg/dl (8.6-10.3); Creatinine Clr Calc Pharmacy 53.6 ml/min; Est GFR (African American) 86.8 ml/min; Est GFR (Non-African American) 74.9 ml/min; Potassium 3.8 mmol/L (3.5-5.1)
--- NOTE | 2023-11-27 12:11 | Hospitalist Progress Note ---
Date of Service November 27, 2023 Assessment & Plan (1) T12 compression fracture: (2) Pathologic fracture: (3) Spinal stenosis, thoracolumbar region: (4) Multiple myeloma: (5) HTN (hypertension): Plan 78-year-old male who has significant past medical history of multiple myeloma currently on Revlimid therapy following [facility], HTN, GERD who presented for elective kyphoplasty and lumbar decompression surgery by Dr. Deshpande. T 12 pathologic burst fracture in setting of multiple myeloma with severe central canal stenosis S/P status post T12 kyphoplasty and T12-L1 decompression on 11/14/23 by Evacuation of hematoma and revision decompression T8 [address] Deshpande on 11/14/2023 Postoperative acute blood loss anemia Activity as per primary team Continue wound care Pain control, DVT prophylaxis per orthopedics Continue bowel regimen to prevent constipation Continue PT OT S/P 4 unit PRBC GI eval noted Heme/onc recs noted. Hb is 7.3 today Monitor Melena Acute on chronic anemia Multifactorial: Postoperative acute blood loss anemia, hemodilutional, GI bleed, multiple myeloma H/O hemorrhoids per patient S/P PRBCs as above Continue IV Protonix Melena resolved Hypertension Bp variable Continue to hold lisinopril, HCTZ for now BP has been normal. Based on BP trend this admission, will stop lisinopril on discharge Resume HCTZ on discharge Acute kidney injury Renal USS noted bilateral hydroneprosis CT abd/P showed distended bladder, no urinary calculi,. Left parapelvic cysts. No left hydronephrosis. Probable right parapelvic cysts although right hydronephrosis could appear similar. Anasarca, small right pleural effusion, subpleural RLL opacity Had urinary retention with large output of 1.5L after somers placement Continue flomax 0.4mg started inpatient Urology recommends maintaining somers for atleast 7 days and outpt follow up for voiding trial Cr peaked at 2.01 yesterday, down to 0.96 today JUDY resolved Pneumonia CXR on 11/24/23 showed right basilar consolidation with pleural effusion On room air On Augmentin and doxycycline Multiple myeloma: Currently undergoing Revlimid therapy, 21-day cycle/7 days off, patient brought in his own supply Follows [facility], on apixaban for VTE prophylaxis Eliquis has been on hold due to anemia above. Continue to hold this until follow up with Oncologist DVT Px: Nette held: Surgery, melena, significant anemia SCDs for now CODE STATUS FULL CODE I spent a total of 50 minutes coordinating, documenting and providing care for this patient excluding time spent in performance of separately billed services Admission and Anticipated Discharge Date Admission Date: November 14, 2023 Subjective Patient seen and examined Patient denied any complaints today Physical Exam Constitutional: + well hydrated; no acute distress Eyes: PERRL, conjunctivae normal, anicteric sclerae ENMT: external ear and nose normal, oropharynx normal Respiratory: normal respiratory effort, lungs clear to auscultation Cardiovascular: Rate/Rhythm: regular rate and regular rhythm Gastrointestinal (Abdomen): normal bowel sounds, soft, nontender, no hepatosplenomegaly Musculoskeletal: No pedal edema Neurologic: PERRL, EOMI, accommodation nl, no face palsy, no dysarthria Psychiatric: A+Ox3, euthymic affect Genitourinary: Somers in situ Results & Data Results & Data Vital Signs (Past 12 Hours) Vital Signs Temp Pulse Resp BP Pulse Ox O2 Del Method 11/27/23 07:45 Room Air 11/27/23 07:11 36.7 C 94 H 16 144/69 H 95 Room Air 11/27/23 05:28 36.7 C 75 16 108/64 95 Room Air Laboratory Results Abnormal lab results 11/26/23 11/26/23 11/27/23 Range/Units 07:08 22:27 05:39 RBC 2.49 L (4.70-6.10) M/uL Hgb 7.8 L 7.3 L (14.0-18.0) g/dl Hct 24.1 L 22.9 L (42.0-52.0) % MCHC 31.9 L (32.0-36.0) g/dL RDW Std Deviation 53.7 H (36.4-46.3) fL RDW Coeff of Rohini 16.2 H (11.5-14.5) % Chloride 110 H (98-107) mmol/L BUN/Creatinine Ratio 24.0 H (10-20) Glucose 101 H (70-99(Fasting)) mg/dl Calcium 6.2 L (8.6-10.3) mg/dl Antibody Screen POSITIVE A Crossmatch See Detail
[2023-11-28 07:45] VITALS: BP 114/62; PULSE 65; RESP 17; TEMP 98.2; O2SAT 94
[2023-11-28 09:24] LABS: Hematocrit (blood only) 28.9 % (42.0-52.0); Hemoglobin 9.2 g/dl (14.0-18.0); Mean Corpuscular Hemoglobin 29.4 pg (25.0-34.0); Mean Corpuscular Hgb Conc 31.8 g/dL (32.0-36.0); Mean Corpuscular Volume 92.3 fL (80.0-100.0); Mean Platelet Volume 11.2 fL (9.4-12.4); Platelet Count 395 K/uL (130-400); RDW Standard Deviation 54.1 fL (36.4-46.3); Red Blood Count 3.13 M/uL (4.70-6.10); White Blood Count 8.03 K/ul (4.8-10.8)
[2023-11-28 09:41] LABS: BUN Creatinine Ratio 17.9 (10-20); Calcium 6.8 mg/dl (8.6-10.3); Creatinine Clr Calc Pharmacy 54.2 ml/min; Est GFR (African American) 87.9 ml/min; Est GFR (Non-African American) 75.8 ml/min; Potassium 3.9 mmol/L (3.5-5.1)
--- NOTE | 2023-11-28 11:42 | Discharge Summary ---
Date of Service November 28, 2023 Admission HPI Per Admitting Provider This is a 78-year-old male who has significant past medical history of multiple myeloma currently on Revlimid therapy following [facility], HTN, GERD who presented for elective kyphoplasty and lumbar decompression surgery by Dr. Deshpande. He currently is undergoing treatment for multiple myeloma and follows with Dr. Coelho of [facility]. He has been dealing with a significant amount of lower back pain with radiation to his hips. He underwent an MRI of his back which revealed a T12 burst fracture with 6 mm retropulsion likely pathologic in setting of history of multiple myeloma as well as severe central canal stenosis at the T12 level secondary To the retropulsion. He therefore was referred to Dr. Deshpande. He underwent the first procedure this morning and in PACU he developed significant groin pain. He was taken back to the OR to rule out neural compression. His exploratory procedure revealed hematoma in the epidural space as well as fragments of bone in the lateral recess and CSF leak. CSF leak was repaired with a dural seal patch. A 10 round MIRTHA drain was then inserted and he was taken back to PACU in stable condition. Postoperatively he continues to complain of numbness in his groin area but otherwise feels well. His son and [id number] are at bedside. He currently denies any fever, chills, sweats, lightheadedness, dizziness, chest pain, shortness of breath, nausea, vomiting or abdominal pain. He tolerated his clear liquid diet. Of note he is on a apixaban therapy and he last took this on Thursday 11/09. He is on this for VT prophylaxis while on Revlimid therapy. Admission Exam Per Admitting Provider Constitutional: WD/WN, elderly, M, sitting up in bed, pale, vitals as above, NAD, sitting up in bed, pleasant, conversing easily Head: Normocephalic, Atraumatic Eyes: PERRL, conjunctivae normal, anicteric sclerae ENMT: external ear and nose normal, oropharynx normal Neck: trachea midline, no thyromegaly normal visual inspection Respiratory: normal respiratory effort, on O2 via 2L, lungs clear to auscultation, no wheeze, rales, rhonchi. Normal insp/exp effort, no accessory muscle use Cardiovascular: RRR, no murmur, no edema Vessels: no JVD or carotid bruit Chest: normal inspection of chest Abdomen: normal bowel sounds, soft, nontender, no hepatosplenomegaly Musculoskeletal: no cyanosis or clubbing, AROM x 4 Skin: no rashes, warm and dry normal turgor , lumbar dressing CDI with serosang drainage Neurologic: no face palsy, no dysarthria CN's II-XI intact bilaterally and moves all extremities Psychiatric: A+Ox3, euthymic affect Lymphatic: no cervical or axillary lymphadenopathy : somers cath with yellow urine Principal Diagnosis T12 burst fracture Acute kidney injury Urinary retention Anemia Discharge Exam Constitutional + well hydrated; no acute distress Eyes PERRL, conjunctivae normal, anicteric sclerae ENMT external ear and nose normal, oropharynx normal Respiratory normal respiratory effort, lungs clear to auscultation Cardiovascular Rate/Rhythm: regular rate and regular rhythm Gastrointestinal (Abdomen) normal bowel sounds, soft, nontender, no hepatosplenomegaly Musculoskeletal Clean dressing over surgical site +pedal edema Neurologic PERRL, EOMI, accommodation nl, no face palsy, no dysarthria Psychiatric A+Ox3, euthymic affect Discharge Data Allergies Allergy/AdvReac Type Severity Reaction Status Date / Time No Known Allergies Allergy Verified 11/14/23 08:19 Consultations 11/14/23 17:15 Consult Hospitalist Routine 11/19/23 14:45 Consult Gastroenterology Routine 11/21/23 10:07 Consult Oncology Routine 11/26/23 07:23 Consult Nephrology Routine Consult Urology Routine Procedures Performed Operation Date: 11/14/23 09:40 Actual Procedures p Evacuation of hematoma and revision decompression T8 12 L1.(Not Applicable) - Anival Deshpande DO Ordered Studies 11/14/23 09:35 FL spine 1V any level Routine 11/25/23 10:56 US Kidney Bladder [US renal/blad retro comp] Urgent 11/26/23 07:56 CT Abd and Pelvis [CT abd pelvis wo con] Urgent Hospital Course (1) T12 compression fracture: (2) Pathologic fracture: (3) Spinal stenosis, thoracolumbar region: (4) Multiple myeloma: (5) HTN (hypertension): Plan 78-year-old male who has significant past medical history of multiple myeloma currently on Revlimid therapy [facility], HTN, GERD who presented for elective kyphoplasty and lumbar decompression surgery by Dr. Deshpande. T 12 pathologic burst fracture in setting of multiple myeloma with severe central canal stenosis S/P status post T12 kyphoplasty and T12-L1 decompression on 11/14/23 by Evacuation of hematoma and revision decompression T8 [address] Deshpande on 11/14/2023 Postoperative acute blood loss anemia on chronic anemia Melena Acute on chronic anemia Multifactorial: Postoperative acute blood loss anemia, hemodilutional, GI bleed, multiple myeloma H/O hemorrhoids per patient Melena resolved S/P 4 unit PRBC Hb is 9.2 today GI evaluated and recommends eventual EGD and colonoscopy outpatient Patient was also evaluated by Heme/Onc His home eliquis and revlimid were held I discussed with Hem/Onc Dr Coelho today. He recommends to continue to hold home eliquis, Revlimid and dexamethasone until follow up with him Hypertension BP was variable during hospital stay from low to normal Home Lisinopril and HCTZ were held while inpatient BP is better controlled Lisinopril stopped on discharge HCTZ resumed on discharge Acute kidney injury Renal USS noted bilateral hydronephrosis CT abd/P showed distended bladder, no urinary calculi,. Left parapelvic cysts. No left hydronephrosis. Probable right parapelvic cysts although right hydronephrosis could appear similar. Anasarca, small right pleural effusion, subpleural RLL opacity Had urinary retention with large output of 1.5L after somers placement Was started on flomax 0.4mg Urology evaluated and recommended maintaining somers for atleast 7 days and outpatient follow up for voiding trial Cr peaked at 2.01, down to 0.95 today JUDY resolved Pneumonia Patient had cough and shortness of breath CXR on 11/24/23 showed right basilar consolidation with pleural effusion Treated with Augmentin and doxycycline Multiple myeloma: Dr Coelho recommends stopping eliquis, Revlimid and dexamethasone for now until he follows up with patient outpatient Total Time Total Time Spent Total Time Spent (In Minutes): 45 Total Time Includes: Examination of the Patient, Discharge Planning, Medication Reconciliation, Communication With Other Providers and Other (I called son and updated him on plans/changes/recs) Discharge Plan Discharge Items Patient Disposition: Transfer [facility] Reason For Visit: Burst Fracture of T12 Vertebra Discharge Diagnosis: T12 burst fracture Acute kidney injury Urinary retention Anemia Activity: As commented below Non-emergency contact: Primary Care Provider Call non-emergency contact if: you have any medication questions Follow-up/Referrals: Nelson Bertrand PA-C [Primary Care Provider] - Enrrique Mera MD [Physician] - (Call for follow up within a week) Diet: Regular Addtl Attending Provider Instructions: Mr Hernández. You came to the hospital and had T12 to L1 decompression and evacuation of hematoma. You had low blood count and bloody stool afterwards. Bloody stool has resolved. You required 4 units of blood during your hospital stay. You also had acute kidney injury and urinary retention and required somers catheter You are being discharged to rehab. Please stop taking your Eliquis, Revlimid and dexamethasone for now until follow up with your Dietician. Please ensure follow up with Gastroenterology outpatient for further evaluation of the bloody stools you had. You were started on flomax for urinary retention. You are being discharged with the somers catheter. Please ensure follow up with Urology in about a week for voiding trial. Please stop taking lisinopril for now due to lower blood pressure Please continue hydrochlorothiazide It was a pleasure taking care of you. Pending Studies at Discharge: No Stand-Alone Forms: My [facility] [employer] Skilled Items Patient informed of condition?: Yes DNR: No Discharge Level of Care: Acute rehab Communicable Disease: No Discharge Prognosis: Improving Lines: None Urinary Catheter: No Medications and DC Order Prescriptions: New gabapentin 300 mg Capsule 300 mg PO TID Qty: 90 3RF doxycycline hyclate 100 mg Capsule 100 mg PO BID 1 Days Qty: 2 0RF tamsulosin 0.4 mg Capsule 0.4 mg PO HS 30 Days Qty: 30 0RF amoxicillin-pot clavulanate 500-125 mg Tablet 1 tab PO BIDM 1 Days Qty: 2 0RF pantoprazole 40 mg tablet,delayed release (DR/EC) 40 mg PO DAILY Qty: 30 0RF tramadol 50 mg tablet 50 mg PO Q6H PRN (Reason: pain) Qty: 10 0RF Continued famotidine [Pepcid] 20 mg Tablet 20 mg PO DAILY PRN (Reason: Acid Reflux) 30 Days Qty: 30 0RF calcium carbonate 500 mg calcium (1,250 mg) Tablet 500 mg PO BID Qty: 60 0RF acyclovir 200 mg Capsule 400 mg PO BID 30 Days Qty: 120 0RF hydrochlorothiazide 25 mg Tablet 25 mg PO QAM 30 Days Qty: 30 0RF cholecalciferol (vitamin D3) [Vitamin D3] 50 mcg (2,000 unit) Tablet 50 mcg PO BID 30 Days Qty: 60 0RF Discontinued lisinopril 20 mg Tablet 20 mg PO QAM dexamethasone 4 mg Tablet 4 mg PO DIRECTED Patient Comments: 5 tabs every in AM lenalidomide [Revlimid] 10 mg Capsule 10 mg PO DIRECTED Patient Comments: one cap for 21 days in PM. Then 7 days off > Will be starting the 21 day on 11/03/23 Rx Instructions: swallow whole with glass of water; do not open, crush, chew , break, or dissolve apixaban 5 mg Tablet 2.5 mg PO BID Discharge Orders: Discharge Order (Routine); Ordered 11/28/23 Ordered By: Nneka Butler Admission Data Admit Date/Time: 11/14/23 11:19 Attending Provider: Nneka Butler I. Admit Provider: Anival Deshpande Primary Care Provider: Nelson Bertrand Other Providers: Nesha Kothari; Liza Ortiz; Gus Hinkle; Steve Santizo; Barbara Ahmadi; Jania Sims; Saskia Montesinos; Daphne Ortega; Lillie Patino; Amish Diamond; David Ceron; Dex Watt; Anum Zhang; Jaclyn Amos S; Laila Flores; Dee Aguilar; Norma Nichole; Pippa Meadows; Maribell Marrero; Og Callejas; Darnell Wood; Amara Quinonez; Gorge Arteaga Jr; Maco Hernadez; Stephen Cadena; Marcus Schultz; Louis Saleh; Kathy Diana; Elijah Enrique I; Rizwan Coelho; Inessa Fuchs; Enrrique Mera; Anival Deshpande Other Interventions: Discharge Summary Assessment (RN) Last Done: 11/28/23 12:41
== END 2023-11-28 13:21 | DRG 459 ==
LOC: ASU 07:49 → SUATTDRO 11:19 → 3E 11:19